=== PATIENT | male | born 1960 | race Caucasian/White ===

== ENCOUNTER 2017-02-20 07:03 | Inpatient (IN) | payer MEDICARE, BC ==
[~2017-02-20] VITALS: Ht 175.3 cm; Wt 113.9 kg
[~2017-02-20 07:03] MED LIST: GLIP5TAB10 PO; HYDR-2165 PO; METF-620 PO; PRED20TA PO
[2017-02-20 07:40] LABS: BASO % 0 % (0-3); EOS % 1 % (0-3); HEMATOCRIT 38.3 % (39.0-53.0); HEMOGLOBIN 12.6 g/dL (13.0-17.5); LYMPH # 2.2 x10^3/uL (1.0-4.8); LYMPH % 18 % (24-48); MEAN CORPUSCULAR HEMOGLOBIN 29 pg (25-35); MEAN CORPUSCULAR HGB CONC 33 g/dL (31-37); MEAN CORPUSCULAR VOLUME 88 fL (79-100); MONO % 7 % (0-9); NEUT % 74 % (31-73); PLATELET COUNT 287 x10^3/uL (140-400); RED BLOOD COUNT 4.33 x10^6/uL (4.30-5.70); RED CELL DISTRIBUTION WIDTH 16.9 % (11.5-14.5); WHITE BLOOD COUNT 12.1 x10^3/uL (4.0-11.0)
[2017-02-20] MEDS ORDERED: ONDANSETRON PF 4 MG/2 ML VIAL. IV ONE (07:45)
[2017-02-20] MEDS ORDERED: NITROGLYCERIN SUBLINGUAL 0.4 MG BOTTLE OF 25. SL PRN (07:45)
[2017-02-20] MEDS ORDERED: ASPIRIN CHEWABLE 81 MG TABLET. PO ONE (07:45)
[2017-02-20 07:49] LABS: INR 1.2 (0.8-1.1); PROTHROMBIN TIME PATIENT 14.3 SEC (11.7-14.0)
[2017-02-20] MEDS: MORPHINE SULFATE 4 MG/ML DISP.SYRIN. IV/SQ PRN ×3 (07:50→17:56)
[2017-02-20 08:01] LABS: ALBUMIN 2.7 g/dL (3.4-5.0); DIRECT BILIRUBIN 0.2 mg/dL (0.0-0.2); MAGNESIUM 1.9 mg/dL (1.8-2.4); TOTAL BILIRUBIN 0.7 mg/dL (0.2-1.0); TOTAL PROTEIN 7.4 g/dL (6.4-8.2)
--- NOTE | 2017-02-20 08:09 | RAD ---
Chest, 2 views, 02/20/2017: History: Chest pain Comparison is made to a study from 02/20/2013. The heart is mildly enlarged. Coronary artery calcifications are noted. There is mild to moderate right parahilar infiltrate. The left chest is clear. No pleural fluid is seen. There are mild scattered degenerative changes in the spine. IMPRESSION: 1. Mild cardiomegaly with coronary calcifications. 2. Right parahilar infiltrates suggesting pneumonia. Radiographic follow-up is suggested to exclude underlying neoplasm.
[2017-02-20 08:12] LABS: CKMB MASS < 0.5 ng/mL (0.0-3.6); CREATINE KINASE 21 U/L (39-308)
[2017-02-20] MEDS ORDERED: levOFLOXacin PER PHARMACY. MC PRN (08:15)
--- NOTE | 2017-02-20 08:21 | RAD ---
Right lower extremity venous ultrasound, 02/20/2017 : History: Right seen injury, contusion, chest pain Duplex evaluation including grayscale, color flow and spectral Doppler analysis was performed. The femoral and popliteal veins show no filling defects to suggest DVT. The visualized deep veins in the right calf are unremarkable. IMPRESSION: There is no sonographic evidence of deep vein thrombosis in the right lower extremity
--- NOTE | 2017-02-20 08:23 | PHYS DOC ---
Past Medical History Past Medical History: Arthritis, Constipation, Diabetes-Type II, Hypertension Additional Past Medical Histor: Psoriatic arthritis,legionaries disease,high cholesterol Past Surgical History: No Surgical History Alcohol Use: None Drug Use: None Adult General Chief Complaint Chief Complaint: chest pain HPI HPI Patient is a 56 year old male who presents with right-sided chest pain that awoke him at 3 AM. States it hurts when he takes a deep breath, does not radiate. Associated diaphoresis and SOB. States he hasn't been feeling well for the last couple of days, reports subjective fevers. Denies previous similar symptoms, denies known h/o CAD. Had Legionnaire's several years ago, no similar sputum with this cough. Review of Systems Review of Systems Constitutional: Denies chills [] Eyes: Denies change in visual acuity, redness, or eye pain [] HENT: Denies nasal congestion or sore throat [] Respiratory: per hpi Cardiovascular: No additional information not addressed in HPI [] GI: Denies abdominal pain, nausea, vomiting, bloody stools or diarrhea [] : Denies dysuria or hematuria [] Musculoskeletal: Denies back pain or joint pain [] Integument: Denies rash or skin lesions [] Neurologic: Denies headache, focal weakness or sensory changes [] Current Medications Current Medications Current Medications Medications (Trade) Dose Ordered Sig/Vanessa Start Time Stop Time Status Last Admin Dose Admin Acetaminophen (Tylenol) 650 mg PRN Q4HRS PRN 02/20/17 08:30 02/21/17 08:29 Aspirin (Children'S Aspirin) 324 mg 1X ONCE 02/20/17 07:45 02/20/17 07:46 DC 02/20/17 07:50 324 MG Iohexol (Omnipaque 300 Mg/ml) 75 ml 1X ONCE 02/20/17 08:30 02/20/17 08:31 DC 02/20/17 08:46 75 ML Levofloxacin/ Dextrose 150 ml @ 100 mls/hr 1X ONCE 02/20/17 08:15 02/20/17 09:44 DC 02/20/17 09:09 100 MLS/HR Levofloxacin/ Dextrose (Levaquin Per Pharmacy) 1 each PRN DAILY PRN 02/20/17 08:15 Morphine Sulfate 2 mg PRN Q2HR PRN 02/20/17 08:30 02/21/17 08:29 Nitroglycerin (Nitrostat) 0.4 mg PRN Q5MIN PRN 02/20/17 07:45 02/20/17 08:24 DC Ondansetron HCl (Zofran) 4 mg PRN Q8HRS PRN 02/20/17 08:30 02/21/17 08:29 Sodium Chloride 1,000 ml @ 1,000 mls/hr 1X ONCE 02/20/17 08:30 02/20/17 09:29 DC 02/20/17 09:09 1,000 MLS/HR Allergies Allergies Allergies Coded Allergies Type Severity Reaction Last Updated Verified Penicillins Allergy Severe anaphalaxis 07/02/16 Yes neomycin Allergy Intermediate rash/hives 07/02/16 Yes Physical Exam Physical Exam Constitutional: Well developed, well nourished, no acute distress, non-toxic appearance. [] HENT: Normocephalic, atraumatic, bilateral external ears normal, oropharynx moist, no oral exudates, nose normal. [] Eyes: PERRLA, EOMI, conjunctiva normal, no discharge. [] Neck: Normal range of motion, no tenderness trace systolic murmur [] Lungs & Thorax: Bilateral breath sounds, anterior R crackles, diffuse rhonchi, no wheezing Abdomen: Bowel sounds normal, soft, no tenderness, no masses, no pulsatile masses. [] Skin: Warm, dry, no erythema, no rash. [] Back: No tenderness, no CVA tenderness. [] Extremities: No tenderness, no cyanosis, no clubbing, ROM intact, no edema. [] Neurologic: Alert and oriented X 3, normal motor function, normal sensory function, no focal deficits noted. [] Psychologic: Affect normal, judgement normal, mood normal. [] Current Patient Data Vital Signs Vital Signs Date Time Temp Pulse Resp B/P (MAP) Pulse Ox O2 Delivery O2 Flow Rate FiO2 02/20/17 08:32 56 20 100/57 (71) 96 Nasal Cannula 2.0 02/20/17 07:14 98.8 98.8 Lab Values Laboratory Tests Test 02/20/17 07:20 White Blood Count 12.1 x10^3/uL (4.0-11.0) H Red Blood Count 4.33 x10^6/uL (4.30-5.70) Hemoglobin 12.6 g/dL (13.0-17.5) L Hematocrit 38.3 % (39.0-53.0) L Mean Corpuscular Volume 88 fL (79-100) Mean Corpuscular Hemoglobin 29 pg (25-35) Mean Corpuscular Hemoglobin Concent 33 g/dL (31-37) Red Cell Distribution Width 16.9 % (11.5-14.5) H Platelet Count 287 x10^3/uL (140-400) Neutrophils (%) (Auto) 74 % (31-73) H Lymphocytes (%) (Auto) 18 % (24-48) L Monocytes (%) (Auto) 7 % (0-9) Eosinophils (%) (Auto) 1 % (0-3) Basophils (%) (Auto) 0 % (0-3) Neutrophils # (Auto) 8.9 x10^3uL (1.8-7.7) H Lymphocytes # (Auto) 2.2 x10^3/uL (1.0-4.8) Monocytes # (Auto) 0.8 x10^3/uL (0.0-1.1) Eosinophils # (Auto) 0.2 x10^3/uL (0.0-0.7) Basophils # (Auto) 0.0 x10^3/uL (0.0-0.2) Prothrombin Time 14.3 SEC (11.7-14.0) H Prothrombin Time INR 1.2 (0.8-1.1) H Sodium Level 138 mmol/L (136-145) Potassium Level 3.9 mmol/L (3.5-5.1) Chloride Level 100 mmol/L (98-107) Carbon Dioxide Level 26 mmol/L (21-32) Anion Gap 12 (6-14) Blood Urea Nitrogen 12 mg/dL (8-26) Creatinine 0.9 mg/dL (0.7-1.3) Estimated GFR (Cockcroft-Gault) 87.0 Glucose Level 87 mg/dL (70-99) Calcium Level 9.0 mg/dL (8.5-10.1) Magnesium Level 1.9 mg/dL (1.8-2.4) Total Bilirubin 0.7 mg/dL (0.2-1.0) Direct Bilirubin 0.2 mg/dL (0.0-0.2) Aspartate Amino Transferase (AST) 27 U/L (15-37) Alanine Aminotransferase (ALT) 26 U/L (16-63) Alkaline Phosphatase 59 U/L (46-116) Creatine Kinase 21 U/L (39-308) L Creatine Kinase MB (Mass) < 0.5 ng/mL (0.0-3.6) Creatine Kinase MB Relative Index % (0-4) Troponin I Quantitative < 0.017 ng/mL (0.000-0.055) Total Protein 7.4 g/dL (6.4-8.2) Albumin 2.7 g/dL (3.4-5.0) L Laboratory Tests 02/20/17 07:20 Laboratory Tests 02/20/17 07:20 EKG EKG 57 bpm, sinus, normal axis, normal intervals, no ST elevation or depression, biphasic T-wave in V2 and V3, otherwise nonischemic T waves, interpreted by or Radiology/Procedures Radiology/Procedures Two-view chest x-ray shows right lower lobe pneumonia per my evaluation, mild cardiomegaly, no foreign bodies, per radiology they state patient has right perihilar infiltrates suggesting pneumonia, radiographic follow-up recommended as underlying neoplasm not excluded [] Course & Med Decision Making Course & Med Decision Making Pertinent Labs and Imaging studies reviewed. (See chart for details) Patient was given aspirin, morphine. X-ray shows pneumonia. DVT of the right lower leg ordered. IV Levaquin ordered along with lactate and blood cultures as patient is now Sirs positive with white count greater than 12 and respiratory rate greater than 22. I spoke with , she accepted pt and pt admitted to [facility]. CTA ordered and pending. 1 L NS bolus ordered. Pt's bp maintained. CTA shows no PE, does show pneumonia. Dragon Disclaimer Dragon Disclaimer This electronic medical record was generated, in whole or in part, using a voice recognition dictation system. Departure Departure Impression: Primary Impression: Community acquired bacterial pneumonia Additional Impression: Chest pain Disposition: ADMITTED INPATIENT Admitting Physician: Other Condition: STABLE Referrals: GARY EDWARD (PCP) Problem Qualifiers EDISON DERAS MD Feb 20, 2017 08:23
[2017-02-20] MEDS ORDERED: ONDANSETRON PF 4 MG/2 ML VIAL. IV PRN (08:30)
[2017-02-20] MEDS ORDERED: ACETAMINOPHEN 325 MG TABLET. PO PRN (08:30)
[2017-02-20] MEDS ORDERED: IV NORMAL SALINE 1000ML BAG 1,000 ML IV ONE (08:30)
[2017-02-20] MEDS ORDERED: IOHEXOL 300 MG/ML 75 ML VIAL IV ONE (08:30)
--- NOTE | 2017-02-20 08:43 | EKG ---
[facility] [address] [place] [address] Test Date: 2017-02-20 Test Time: 07:17:10 Pat Name: SAMI FERRER Department: Room: Gender: M [facility] Visitor: : 1960 Requested By: EDISON DERAS Order Number: [id number] Reading MD: Teena Carpenter Measurements Intervals [place] Rate: 57 P: -28 AL: 164 QRS: 57 QRSD: 106 T: 13 QT: 446 QTc: 437 Interpretive Statements SINUS RHYTHM INCOMPLETE RIGHT BUNDLE BRANCH BLOCK POSSIBLY ABNORMAL ECG Electronically Signed On 02-20-2017 14:36:48 CDT by Teena Carpenter
[2017-02-20] MEDS ORDERED: CONTRAST GIVEN MC PRN (08:45)
--- NOTE | 2017-02-20 09:43 | RAD ---
CTA of the chest with contrast, 02/20/2017: History: Shortness of breath, chest pain, infiltrate Multidetector CT imaging was performed following an IV bolus injection of iodinated contrast material. Multiplanar reconstructions were produced including coronal MIP images. The central pulmonary arteries are well opacified. No definite filling defects are seen to suggest pulmonary emboli. There is mild calcific plaquing of the thoracic aorta and its branches without evidence of aneurysm. Moderate scattered coronary artery calcifications are present. There are calcified lymph nodes at the left hilum. There are several scattered mediastinal lymph nodes of normal size. No mediastinal adenopathy is detected. There are calcified granulomata in the left lower lobe. The lungs demonstrate mosaic attenuation, particularly in the upper chest bilaterally. The pattern suggests that this is due to groundglass opacities. A lesser degree of groundglass infiltrate was present in a different distribution on the 02/20/2013 study. There are more dense streaky opacities in the right lower lobe compatible with infiltrate or scarring. Dense infiltrates seen in the left lung on the previous study have resolved. No significant pleural fluid is present. There are moderate scattered hypertrophic degenerative changes in the spine. IMPRESSION: 1. No CT evidence of central pulmonary emboli. 2. Moderate bilateral patchy groundglass pulmonary opacities which can be due to a variety of causes including pulmonary edema, atypical pneumonia or bronchiolitis. 3. Moderate streaky right lower lobe opacities compatible with atelectasis/pneumonitis or scarring. 4. Moderate coronary artery disease. PQRS Compliance Statement: One or more of the following individualized dose reduction techniques were utilized for this examination: 1. Automated exposure control 2. Adjustment of the mA and/or kV according to patient size 3. Use of iterative reconstruction technique
--- NOTE | 2017-02-20 10:01 | ACF ---
Admission Forms Criteria PNEUMONIA, COMMUNITY ACQUIRED Clinical Indications for Admission to Inpatient Care (Place 'X' for any and all applicable criteria): Admission to inpatient status for two midnights or more is indicated for ANY ONE of the following (1)(2)(3): [ ]I. Hypoxia [ ]II. Hemodynamic instability [ ]III. Altered mental status that is severe or persistent [ ]IV. Dehydration that is severe or persistent. [ ]V. Bacteremia [ ]. Moderate-risk or high-risk category patients (Pneumonia Severity Index ( PSI) class IV or V, or CURB-65 score of 3 or greater). [X]VII. Intermediate-risk category patients (e.g., PSI class III or CURB-65 score 2) who do not improve with outpatient and observation care treatment [ ]VIII. Outpatient treatment failure as indicated by 1 or more of the following(9): [ ]a) Failure to respond to antibiotic (eg, resistant organism) [ ]b) Clinically significant adverse effects from medication (eg, vomiting) [ ]c) Complications of pneumonia (eg, empyema, bacteremia) [ ]d) Significant worsening of comorbid cond necessitating inpatient care (eg, chronic heart failure) [ ]IX. Appropriate diagnostic testing and treatment unavailable in outpatient or recovery facility (eg, testing or infection control measures unavailable) [ ]X. Respiratory finding (eg. tachypnea) that do not respond to outpatient observation care treatment [ ]XI. Complicated pleural effusions (eg, emphysema, exudative, loculated) [ ]XII. Immunocompromised patients (e.g., AIDS, chronic steroid use) at moderate or high risk based on clinical evaluation. Extended stay beyond goal length of stay may be needed for (20) [ ]a) Unclear diagnosis [ ]b) Pleural disease [ ]c) Severe pneumonia or treatment failure [ ]d) Respiratory failure [ ]e) New onset hyponatremia (serum Na concentration less than 135 mEq/L(mmol/ L) [ ]f) Clinically significant comorbid illness (eg, heart failure, atrial fibrillation with rapid heart rate, alcohol withdrawal, renal insufficiency)(34)(35) [ ]g) Comorbid acute exacerbation of COPD(36) [ ]h) Concomitant diagnosis of malignancy [ ]i) Concomitant altered mental status [ ]j) Culture-identified Gram-negative or antibiotic-resistant organism (eg, Pseudomonas, methicillin-resistant Staphylococcus aureus MRSA)(30) [ ]k) Healthcare-associated pneumonia (36) The original [facility] [employer] content created by [facility] has been revised. The portions of the content which have been revised are identified through the use of italic text, and [facility] has neither reviewed nor approved the modified material. All other unmodified content is copyright [facility]. Please see references footnoted in the original [facility] edition 2015 Admission Criteria Met?: Yes ZAHRA ZAMORA Feb 20, 2017 10:01
[2017-02-20 10:09] LABS: CREATININE 0.9 mg/dL (0.7-1.3); POTASSIUM 3.9 mmol/L (3.5-5.1)
[2017-02-20] MEDS ORDERED: METH2.5T PO (10:19)
[2017-02-20] MEDS ORDERED: PRAV40TA2 PO (10:19)
[2017-02-20] MEDS ORDERED: LISI10TA2 PO (10:19)
[2017-02-20] MEDS ORDERED: AMIO200T2 PO (10:19)
[2017-02-20] MEDS ORDERED: OMEP40CA5 PO (10:19)
[2017-02-20] MEDS ORDERED: GLIM4TAB2 PO (10:19)
[2017-02-20] MEDS ORDERED: PRED-220 PO (10:19)
[2017-02-20] MEDS ORDERED: DUTA0.5C PO (10:19)
[2017-02-20 11:00] VITALS: BP 117/60
[2017-02-20] MEDS: MORPHINE SULFATE 2 MG/ML DISP.SYRIN. IV PRN ×2 (13:10→23:20)
[2017-02-20] MEDS ORDERED: ALBUTEROL SULFATE 2.5 MG/3 ML NEBU. NEB PRN (14:45)
[2017-02-20 15:00] VITALS: BP 132/72
[2017-02-20] MEDS: IPRATRPIUM/ALBUTEROL 0.5/2.5MG 3 ML NEBU. NEB SCH ×2 (15:03→19:18)
[2017-02-20 15:06] LABS: BILIRUBIN,URINE SMALL (NEG); GLUCOSE,URINE NEGATIVE (NEG); NITRITE,URINE NEGATIVE (NEG); PROTEIN,URINE 30 mg/dL (NEG-TRACE)
[2017-02-20 15:16] LABS: BACTERIA,URINE 0 /HPF (0-FEW); RBC,URINE OCC /HPF (0-2); SQUAMOUS EPITHELIAL CELL,UR FEW /LPF; WBC,URINE 0 /HPF (0-4)
[2017-02-20 17:06] VITALS: BP 132/72
[2017-02-20] MEDS ORDERED: OXYC30TA64 PO (18:06)
[2017-02-20 19:59] VITALS: BP 108/52
--- NOTE | 2017-02-20 21:10 | PDOC1 ---
History and Physical Date of Admission Date of Admission DATE: 02/20/17 TIME: 21:10 Identification/Chief Complaint Chief Complaint R sided chest pain Problems: Source Source: Patient History of Present Illness History of Present Illness Mr Townsend is a 56 y/o smoker with history of Legionnaire's pneumonia, who presented to the ER with severe, 10/10 sharp pain in the middle of his right chest, shooting through to his back, worse with deep breathing. This awoke him at 3AM this morning, and without relenting, he decided to come in. He admits to some diaphoresis, but no fever, no cough or sputum production. He denies any heart disease. In the ER, a CXR showed right perihilar infiltrate consistent with pneumonia. A CTA did not reveal a PE, but bilat patchy groundglass pulmonary opacities, possibly due to atypical pneumonia or bronchiolitis. right lower lobe opacities compatible with atelectasis/pneumonitis or scarring. He is now admitted for pain control as well as atypical pneumonia Current Problem List Problem List Problems Medical Problems: (1) Chest pain Status: Acute (2) Community acquired bacterial pneumonia Status: Acute Problems: Current Medications Current Medications Current Medications Aspirin (Children'S Aspirin) 324 mg 1X ONCE PO Last administered on 02/20/17 07:50; Start 02/20/17 at 07:45; Stop 02/20/17 at 07:46; Status DC Nitroglycerin (Nitrostat) 0.4 mg PRN Q5MIN PRN SL CP RATING > 1/10; Start at 07:45; Stop 02/20/17 at 08:24; Status DC Morphine Sulfate 4 mg PRN Q15MIN PRN IV/SQ PAIN GREATER THAN 3/10 Last administered on 02/20/17 17:56; Start 02/20/17 at 07:45; Stop 02/21/17 at 07:44 Ondansetron HCl (Zofran) 4 mg 1X ONCE IV Last administered on 02/20/17 07:49; Start 02/20/17 at 07:45; Stop 02/20/17 at 07:46; Status DC Levofloxacin/ Dextrose (Levaquin Per Pharmacy) 1 each PRN DAILY PRN MC SEE COMMENTS; Start 02/20/17 at 08:15 Levofloxacin/ Dextrose 150 ml @ 100 mls/hr 1X ONCE IV Last administered on 09:09; Start 02/20/17 at 08:15; Stop 02/20/17 at 09:44; Status DC Ondansetron HCl (Zofran) 4 mg PRN Q8HRS PRN IV NAUSEA/VOMITING; Start 02/20/17 at 08:30; Stop 02/21/17 at 08:29 Morphine Sulfate 2 mg PRN Q2HR PRN IV PAIN Last administered on 02/20/17 13:10 ; Start 02/20/17 at 08:30; Stop 02/21/17 at 08:29 Acetaminophen (Tylenol) 650 mg PRN Q4HRS PRN PO FEVER; Start 02/20/17 at 08:30; Stop 02/21/17 at 08:29 Sodium Chloride 1,000 ml @ 1,000 mls/hr 1X ONCE IV Last administered on 09:09; Start 02/20/17 at 08:30; Stop 02/20/17 at 09:29; Status DC Iohexol (Omnipaque 300 Mg/ml) 75 ml 1X ONCE IV Last administered on 02/20/17 08:46; Start 02/20/17 at 08:30; Stop 02/20/17 at 08:31; Status DC Info (Do NOT chart on this entry -- for MONITORING) 1 each PRN DAILY PRN MC SEE COMMENTS; Start 02/20/17 at 08:45; Stop 02/22/17 at 08:44 Levofloxacin/ Dextrose 100 ml @ 100 mls/hr Q24H IV ; Start 02/21/17 at 09:00 Albuterol/ Ipratropium (Duoneb) 3 ml RTQID NEB Last administered on 02/20/17 19 :18; Start 02/20/17 at 16:00 Albuterol Sulfate (Ventolin Neb Soln) 2.5 mg PRN Q4HRS PRN NEB SHORTNESS OF BREATH; Start 02/20/17 at 14:45 Active Scripts Active Reported Oxycontin (Oxycodone HCl) 30 Mg Tab.er.12h 90 Mg PO PRN Q4-6HRS PRN Glimepiride 4 Mg Tablet 4 Mg PO BID Prednisone 10 Mg Tablet 10 Mg PO BID Avodart (Dutasteride) 0.5 Mg Capsule 0.5 Mg PO DAILY Methotrexate (Methotrexate Sodium) 2.5 Mg Tablet 4 Tab PO WEEKLY Lisinopril 10 Mg Tablet 10 Mg PO DAILY Amiodarone Hcl 200 Mg Tablet 400 Mg PO BID Pravastatin Sodium 40 Mg Tablet 40 Mg PO DAILY Omeprazole 40 Mg Capsule.dr 40 Mg PO DAILY Metformin Hcl 1,000 Mg Tablet 1 Tab PO BID Allergies Allergies: Coded Allergies: Penicillins (Verified Allergy, Severe, anaphalaxis, 07/02/16) neomycin (Verified Allergy, Intermediate, rash/hives, 07/02/16) ROS Review of System positive as per HPI. no complaints in rest of organ system review Physical Exam General: Alert, Oriented X3, Cooperative, No acute distress HEENT: Atraumatic, EOMI Lungs: Other (decreased BS R midfield) Heart: RRR Abdomen: Normal bowel sounds, Soft Extremities: No clubbing, No cyanosis, No edema Skin: No rashes Neuro: Normal speech, Strength at 5/5 X4 ext Psych/Mental Status: Mental status NL Vitals Vitals Vital Signs Date Time Temp Pulse Resp B/P (MAP) Pulse Ox O2 Delivery O2 Flow Rate FiO2 02/20/17 19:59 97.5 48 20 108/52 (70) 91 Room Air 97.5 02/20/17 18:26 2.0 Labs Labs Laboratory Tests Test 02/20/17 07:20 02/20/17 08:40 02/20/17 11:15 02/20/17 14:15 White Blood Count 12.1 x10^3/uL (4.0-11.0) Red Blood Count 4.33 x10^6/uL (4.30-5.70) Hemoglobin 12.6 g/dL (13.0-17.5) Hematocrit 38.3 % (39.0-53.0) Mean Corpuscular Volume 88 fL (79-100) Mean Corpuscular Hemoglobin 29 pg (25-35) Mean Corpuscular Hemoglobin Concent 33 g/dL (31-37) Red Cell Distribution Width 16.9 % (11.5-14.5) Platelet Count 287 x10^3/uL (140-400) Neutrophils (%) (Auto) 74 % (31-73) Lymphocytes (%) (Auto) 18 % (24-48) Monocytes (%) (Auto) 7 % (0-9) Eosinophils (%) (Auto) 1 % (0-3) Basophils (%) (Auto) 0 % (0-3) Neutrophils # (Auto) 8.9 x10^3uL (1.8-7.7) Lymphocytes # (Auto) 2.2 x10^3/uL (1.0-4.8) Monocytes # (Auto) 0.8 x10^3/uL (0.0-1.1) Eosinophils # (Auto) 0.2 x10^3/uL (0.0-0.7) Basophils # (Auto) 0.0 x10^3/uL (0.0-0.2) Prothrombin Time 14.3 SEC (11.7-14.0) Prothromb Time International Ratio 1.2 (0.8-1.1) Sodium Level 138 mmol/L (136-145) Potassium Level 3.9 mmol/L (3.5-5.1) Chloride Level 100 mmol/L (98-107) Carbon Dioxide Level 26 mmol/L (21-32) Anion Gap 12 (6-14) Blood Urea Nitrogen 12 mg/dL (8-26) Creatinine 0.9 mg/dL (0.7-1.3) Estimated GFR (Cockcroft-Gault) 87.0 Glucose Level 87 mg/dL (70-99) Calcium Level 9.0 mg/dL (8.5-10.1) Magnesium Level 1.9 mg/dL (1.8-2.4) Total Bilirubin 0.7 mg/dL (0.2-1.0) Direct Bilirubin 0.2 mg/dL (0.0-0.2) Aspartate Amino Transf (AST/SGOT) 27 U/L (15-37) Alanine Aminotransferase (ALT/SGPT) 26 U/L (16-63) Alkaline Phosphatase 59 U/L (46-116) Creatine Kinase 21 U/L (39-308) Creatine Kinase MB (Mass) < 0.5 ng/mL (0.0-3.6) Creatine Kinase MB Relative Index % (0-4) Troponin I Quantitative < 0.017 ng/mL (0.000-0.055) < 0.017 ng/mL (0.000-0.055) Total Protein 7.4 g/dL (6.4-8.2) Albumin 2.7 g/dL (3.4-5.0) Lactic Acid Level 0.7 mmol/L (0.4-2.0) 0.8 mmol/L (0.4-2.0) Test 02/20/17 15:00 Urine Collection Type Unknown Urine Color Dk yellow Urine Clarity Clear Urine pH 6.0 Urine Specific [place] >=1.030 Urine Protein 30 mg/dL (NEG-TRACE) Urine Glucose (UA) Negative mg/dL (NEG) Urine Ketones (Stick) 15 mg/dL (NEG) Urine Blood Negative (NEG) Urine Nitrite Negative (NEG) Urine Bilirubin Small (NEG) Urine Urobilinogen Dipstick 1.0 mg/dL (0.2 mg/dL) Urine Leukocyte Esterase Negative (NEG) Urine RBC Occ /HPF (0-2) Urine WBC 0 /HPF (0-4) Urine Squamous Epithelial Cells Few /LPF Urine Bacteria 0 /HPF (0-FEW) Laboratory Tests Test 02/20/17 07:20 02/20/17 08:40 02/20/17 11:15 02/20/17 14:15 White Blood Count 12.1 x10^3/uL (4.0-11.0) Red Blood Count 4.33 x10^6/uL (4.30-5.70) Hemoglobin 12.6 g/dL (13.0-17.5) Hematocrit 38.3 % (39.0-53.0) Mean Corpuscular Volume 88 fL (79-100) Mean Corpuscular Hemoglobin 29 pg (25-35) Mean Corpuscular Hemoglobin Concent 33 g/dL (31-37) Red Cell Distribution Width 16.9 % (11.5-14.5) Platelet Count 287 x10^3/uL (140-400) Neutrophils (%) (Auto) 74 % (31-73) Lymphocytes (%) (Auto) 18 % (24-48) Monocytes (%) (Auto) 7 % (0-9) Eosinophils (%) (Auto) 1 % (0-3) Basophils (%) (Auto) 0 % (0-3) Neutrophils # (Auto) 8.9 x10^3uL (1.8-7.7) Lymphocytes # (Auto) 2.2 x10^3/uL (1.0-4.8) Monocytes # (Auto) 0.8 x10^3/uL (0.0-1.1) Eosinophils # (Auto) 0.2 x10^3/uL (0.0-0.7) Basophils # (Auto) 0.0 x10^3/uL (0.0-0.2) Prothrombin Time 14.3 SEC (11.7-14.0) Prothromb Time International Ratio 1.2 (0.8-1.1) Sodium Level 138 mmol/L (136-145) Potassium Level 3.9 mmol/L (3.5-5.1) Chloride Level 100 mmol/L (98-107) Carbon Dioxide Level 26 mmol/L (21-32) Anion Gap 12 (6-14) Blood Urea Nitrogen 12 mg/dL (8-26) Creatinine 0.9 mg/dL (0.7-1.3) Estimated GFR (Cockcroft-Gault) 87.0 Glucose Level 87 mg/dL (70-99) Calcium Level 9.0 mg/dL (8.5-10.1) Magnesium Level 1.9 mg/dL (1.8-2.4) Total Bilirubin 0.7 mg/dL (0.2-1.0) Direct Bilirubin 0.2 mg/dL (0.0-0.2) Aspartate Amino Transf (AST/SGOT) 27 U/L (15-37) Alanine Aminotransferase (ALT/SGPT) 26 U/L (16-63) Alkaline Phosphatase 59 U/L (46-116) Creatine Kinase 21 U/L (39-308) Creatine Kinase MB (Mass) < 0.5 ng/mL (0.0-3.6) Creatine Kinase MB Relative Index % (0-4) Troponin I Quantitative < 0.017 ng/mL (0.000-0.055) < 0.017 ng/mL (0.000-0.055) Total Protein 7.4 g/dL (6.4-8.2) Albumin 2.7 g/dL (3.4-5.0) Lactic Acid Level 0.7 mmol/L (0.4-2.0) 0.8 mmol/L (0.4-2.0) Test 02/20/17 15:00 Urine Collection Type Unknown Urine Color Dk yellow Urine Clarity Clear Urine pH 6.0 Urine Specific [place] >=1.030 Urine Protein 30 mg/dL (NEG-TRACE) Urine Glucose (UA) Negative mg/dL (NEG) Urine Ketones (Stick) 15 mg/dL (NEG) Urine Blood Negative (NEG) Urine Nitrite Negative (NEG) Urine Bilirubin Small (NEG) Urine Urobilinogen Dipstick 1.0 mg/dL (0.2 mg/dL) Urine Leukocyte Esterase Negative (NEG) Urine RBC Occ /HPF (0-2) Urine WBC 0 /HPF (0-4) Urine Squamous Epithelial Cells Few /LPF Urine Bacteria 0 /HPF (0-FEW) VTE Prophylaxis Ordered VTE Prophylaxis Devices: No VTE Pharmacological Prophylaxi: Yes Assessment/Plan Assessment/Plan MR Townsend is a 56 y/o smoker who presented with right sided chest pain and findings of atypical pneumonia. will switch antibiotics to azithro 500 for 3 days. With hardly any respiratory symptoms, he may be able to complete the regimen on an outpatient basis. He does have severe respirophasic pain consistent with accompanying pneumonitis. Morphine IV works well for him. will try and switch to PO percocet to hopefully facilitate discharge. He is eager to leave early tomorrow, if at all suitable, has he would love to watch his 10y/o grandson play in the National playoffs going on tomorrow. Of note moderate coronary diseas was notesd on CTA as well. should have his PCP refer to Cardiology when current issues resolved MAIRA BONE MD Feb 20, 2017 21:10
[2017-02-20 23:59] VITALS: BP 124/75
[2017-02-21] MEDS ORDERED: oxyCODONE/APAP 5/325 1 TAB TABLET PO PRN (00:45)
[2017-02-21 07:00] VITALS: BP 135/70
[2017-02-21] MEDS: IPRATRPIUM/ALBUTEROL 0.5/2.5MG 3 ML NEBU. NEB SCH ×2 (07:23→11:47)
[2017-02-21] MEDS ORDERED: AZITHROMYCIN 250 MG TABLET. PO ONE (09:00)
[2017-02-21] MEDS ORDERED: GUAI100L12 PO (10:59)
[2017-02-21] MEDS ORDERED: LEVO750T31 PO (10:59)
[2017-02-21] MEDS ORDERED: OXYC30TA64 PO (10:59)
--- NOTE | 2017-02-21 13:25 | PDOC3 ---
Discharge Summary [facility] Date of Admission: Feb 20, 2017 Discharge Date: Feb 21, 2017 Admitting Diagnosis CAP. no bacteria can be determined chest pain, 2/2 CAP h/o Arthritis, Constipation, Diabetes-Type II, Hypertension Problems: Final Diagnosis Brief Hospital Course Mr. Garner is a 56 old M, comes for cough, right side chest pain, pleuritic, worse with deep breath, cough, non productive. He feels better today, requires to go home dc home with levaquin, cough meds, and oxycontin bid [id number]. dc time 35min General: Alert, Oriented X3, Cooperative, No acute distress HEENT: Atraumatic, EOMI Lungs: Other (decreased BS R midfield) Heart: RRR Abdomen: Normal bowel sounds, Soft Extremities: No clubbing, No cyanosis, No edema Skin: No rashes Neuro: Normal speech, Strength at 5/5 X4 ext Psych/Mental Status: Mental status NL Patient History: Problems: Disposition home CONDITION AT DISCHARGE: Improved Scheduled Amiodarone Hcl (Amiodarone Hcl), 400 MG PO BID, (Reported) Dutasteride (Avodart), 0.5 MG PO DAILY, (Reported) Glimepiride (Glimepiride), 4 MG PO BID, (Reported) Levofloxacin (Levaquin), 750 MG PO DAILY06 Lisinopril (Lisinopril), 10 MG PO DAILY, (Reported) Metformin Hcl (Metformin Hcl), 1 TAB PO BID, (Reported) Methotrexate Sodium (Methotrexate), 4 TAB PO WEEKLY, (Reported) Omeprazole (Omeprazole), 40 MG PO DAILY, (Reported) Pravastatin Sodium (Pravastatin Sodium), 40 MG PO DAILY, (Reported) Prednisone (Prednisone), 10 MG PO BID, (Reported) Scheduled PRN Guaifenesin (Guaifenesin), 200 MG PO PRN Q4HRS PRN for COUGH Oxycodone Hcl (Oxycontin), 90 MG PO PRN Q4-6HRS PRN for PAIN Follow Up pcp in 2 weeks ULISSES NINO MD Feb 21, 2017 13:25
[2017-02-24 08:03] LABS: POTASSIUM ISTAT 3.8 mmol/L (3.5-5.0)
== END 2017-02-21 13:09 | disposition home or self-care (01) | DRG 194 ==
LOC: ER 07:03 → 5 NORTH 08:34
PROVIDERS: ADMIT Internal Medicine Hematology & Oncology; ATTEND Internal Medicine Hematology & Oncology
DX: J18.9 Pneumonia, unspecified organism (principal); E44.0 Moderate protein-calorie malnutrition; F17.200 Nicotine dependence, unspecified, uncomplicated; E78.00 Pure hypercholesterolemia, unspecified; E11.9 Type 2 diabetes mellitus without complications; I10 Essential (primary) hypertension; K59.00 Constipation, unspecified; M19.90 Unspecified osteoarthritis, unspecified site; Z88.0 Allergy status to penicillin; Z88.1 Allergy status to other antibiotic agents
CPT/HCPCS: 36415; 71020; 71275; 80047; 80048; 80076; 81001; 82553; 82962; 83605; 83735; 84484; 85027; 85610; 87040; 93005; 93971; 94250; 94640; 94760; 96365; 96375; J1956; J2270; J2405; J7030; J7620; Q0144; Q9967; 99285-25

== ENCOUNTER → 2017-03-16 | Outpatient (CLI) | payer MEDICARE, BC ==
[2017-02-21 07:00] VITALS: BP 135/70
[~2017-03-16] MED LIST changes: +AMIO200T2 PO; +DUTA0.5C PO; +GLIM4TAB2 PO; +GUAI100L12 PO; +LEVO750T31 PO; +LISI10TA2 PO; +METH2.5T PO; +OMEP40CA5 PO; +OXYC30TA64 PO; +PRAV40TA2 PO; +PRED-220 PO
--- NOTE | 2017-03-16 15:45 | RAD ---
Chest, 2 views, 03/16/2017: History: Follow-up pneumonia Comparison is made to a study from 02/20/2017. The heart is at the upper limits of normal in size and unchanged. The pulmonary vascularity is normal. Right lung infiltrates have resolved. No significant pulmonary consolidation is currently seen. There is no evidence of pleural fluid. Mild scattered spurs are present in the spine. IMPRESSION: Interval resolution of the right pneumonitis.
== END | disposition home or self-care (01) ==
LOC: RAD 09:37
PROVIDERS: ATTEND Family Medicine
DX: J18.9 Pneumonia, unspecified organism (principal)
CPT/HCPCS: 71020

== ENCOUNTER → 2017-05-24 | Outpatient (CLI) | payer MEDICARE, BC ==
[2017-04-19 15:00] VITALS: BP 118/55
[~2017-05-24] MED LIST changes: +ASPI325T11 PO; +CEFP100T PO; +GLIM2TAB PO; +LISI-334 PO; +OXYC30TA PO; +TAMS0.4C97 PO
[2017-05-25] MEDS: REGADENOSON 0.4 MG/5 ML DISP.SYRIN. IV ONE (08:28)
--- NOTE | 2017-05-25 11:30 | RAD ---
APPROVED REPORT Test Type: Pharmacological Stress Nurse/Tech: ISAEL Marin Test Indications: NSTEMI Cardiac History: Afib,HTN Medications: See EMR Medical History: pneumonia, smoker, inhaler PRN, DM Resting ECG: SBw/BBB Resting Heart Rate: 47 bpm Resting Blood Pressure: 165/69mmHg Pretest Chest Pain: No chest pain Nurse/Tech Notes S1,S2, wheezes noted on left, cough productive with green sputum Consent: The procedure was explained to the patient in lay terms. Informed consent was witnessed. Burak eout was entered into [email or web address]. History and Stress Test performed by ISAEL Marin Pharm. Details Pharmacologic stress testing was performed using 0.4mg per 5ml of regadenoson given intravenously ove r 7-10 seconds. Stress Symptoms Tightness in chest, anxiety POST EXERCISE Reason for Termination: Infusion complete Max HR: 128 bpm Max Blood Pressure: 184/75mmHg Blood Pressure response to exercise: Normal blood pressure response during stress. Heart Rate response to exercise: Normal Chest Pain: No. Arrhythmia: No. ST Change: No. INTERPRETATION Stress EKG Conclusion: Baseline EKG showed sinus rhythm. No ischemic changes at peak stress. No arr hythmias. Imaging Protocol IMAGE PROTOCOL: Rest Tc-99m/stress Tc-99m 2 days Rest: Stress: Viability: Radiopharm.Tc99m [id number] Sestamibi Dose34.3mCi 33mCi Duration 12min. 12min. Img Date 05/24/2017 05/25/2017 Inj-Img [id number]. 75min. Rest Admin Site:IV - Left AntecubitalAdministrator:HIMANSHU Moreau Stress Admin Site: IV - Left AntecubitalAdministrator: Lurdes Medina, RT (R)(N) STRESS DATA End Diast. Vol.210.0mlAv. Heart Rate48.0bpm End Syst. Vol.81.0mlCO Index BSA6.2L/min Myocardial Pguv171.0gEject. Npdeuixy84.0% Stress Rates Pk. Fill Rate2.34EDV/secLVtime Pk. Fill 264.51msec Pk. Empty Rate2.56ESV/secLVtime Pk. Oegwz947.54msec 08/25 Pk. Fill0.92EDV/sec Stress Scores Regional WT0.00Summed WT6.00 Regional WM0.00Summed WM0.00 LV Perfusion Scintigraphic images showed small anteroapical wall reversible defect consistent with ischemia. There is borderline transient ischemic dilatation. Wall Motion Normal left ventricle systolic function with ejection fraction calculated at 61%. LV Perf. Quant 17 Seg. SSS4.00 17 Seg. SRS2.00 17 Seg. SDS3.00 Stress Defect Extent (% LAD)20.60Rest Defect Extent (% LAD)1.90Rev. Defect Extent (% LAD)13.10 Stress Defect Extent (% LCX) 0.00Rest Defect Extent (% LCX)11.30Rev. Defect Extent (% LCX)0.00 Stress Defect Extent (% RCA)0.00Rest Defect Extent (% RCA)0.00Rev. Defect Extent (% RCA)0.00 Stress Defect Extent (% ALLIE)7.80Rest Defect Extent (% ALLIE)5.40Rev. Defect Extent (% ALLIE)4.60 Conclusion 1. Regadenoson cardioisotope stress test showed small amount of anteroapical wall ischemia associated with borderline transient ischemic dilatation. 2. Normal left ventricular systolic function with ejection fraction calculated at 61%. 3. Consider cardiac catheterization.
== END | disposition home or self-care (01) ==
LOC: NM 08:33
PROVIDERS: ATTEND Internal Medicine Cardiovascular Disease
DX: I21.4 Non-ST elevation (NSTEMI) myocardial infarction (principal); I49.5 Sick sinus syndrome; I10 Essential (primary) hypertension; E11.9 Type 2 diabetes mellitus without complications; Z79.01 Long term (current) use of anticoagulants
CPT/HCPCS: 78452; 96374; 96375; A9500; 93017; 96376; J2785

== ENCOUNTER → 2017-06-03 | Outpatient (CLI) | payer MEDICARE, BC ==
[~2017-06-03] VITALS: Ht 172.7 cm; Wt 116.6 kg
[2017-06-03] VITALS (11 sets, daily range): BP systolic 98–147; BP diastolic 57–73
[~2017-06-03] MED LIST changes: +HEPARIN for ARTERIAL LINE 1,500 ML ONE; +HEPARIN for IV BOLUS 10,000 UNIT/10 ML VIAL. IART ONE; +HEPARIN for IV BOLUS 10,000 UNIT/10 ML VIAL. ONE; +IOHEXOL 300 MG/ML 100ML VIAL. IART ONE; +IOHEXOL 300 MG/ML 100ML VIAL. ONE; +IV 1/2 NORMAL SALINE 1,000 ML IV SCH; +IV DEXTROSE 5 %-0.45 % NACL 1,000 ML IV SCH; +LIDOCAINE 2% 20 ML VIAL. IJ ONE; +LIDOCAINE 2% 20 ML VIAL. ONE; +MIDAZOLAM HCL/PF 5 MG/5 ML VIAL. IV ONE; +MIDAZOLAM HCL/PF 5 MG/5 ML VIAL. ONE; +NITROGLYCERIN 200 MCG/2 ML SYRINGE FOR CATH/VASC LAB. IART ONE; +NITROGLYCERIN 200 MCG/2 ML SYRINGE FOR CATH/VASC LAB. ONE; +VERAPAMIL 5 MG/2 ML VIAL. IART ONE; +VERAPAMIL 5 MG/2 ML VIAL. ONE; +fentaNYL PF VIAL 100 MCG/2 ML VIAL IV ONE; +fentaNYL PF VIAL 100 MCG/2 ML VIAL ONE
[2017-06-03 07:50] LABS: HEMATOCRIT 38.4 % (39.0-53.0); HEMOGLOBIN 12.6 g/dL (13.0-17.5); RED BLOOD COUNT 4.51 x10^6/uL (4.30-5.70); RED CELL DISTRIBUTION WIDTH 19.8 % (11.5-14.5); WHITE BLOOD COUNT 10.6 x10^3/uL (4.0-11.0)
[2017-06-03 08:00] LABS: PROTHROMBIN TIME PATIENT 12.6 SEC (11.7-14.0)
[2017-06-03 08:02] LABS: CALCIUM 8.8 mg/dL (8.5-10.1); CREATININE 0.9 mg/dL (0.7-1.3)
--- NOTE | 2017-06-03 09:41 | PDOC ---
MODERATE SEDATION ASSESSMENT RISKS/ALTERNATIVES Risks/Alternatives Risks and alternatives of this type of sedation and procedure discussed with: RISK/ALTERNATIVES: Patient H & P ON CHART H & P H & P on chart and reviewed for co-morbid conditions and appropriate labs. H&P ON CHART: Yes STATUS PREG STATUS ASSESSED: N/A MEDS/ALLERGIES REVIEWED Meds/Allergies Reviewed Medications and Allergies including time and route of recently administered narcotics and sedatives. MEDS/ALLERGIES REVIEWED: Yes ASA RATING ASA RATING: II AIRWAY ASSESSMENT Airway Assessment Airway patency, oral function limitations, presence of caps, crowns, dentures, partials, and ability to extend neck assessed. AIRWAY ASSESSMENT: Yes MALLAMPATI SCORE MALLAMPATI SCORE: II PRE-SEDATION ASSESSMENT PRE-SEDATION ASSESSMENT: Yes (Late entry for 06/03/2017 at 9am ) ANTHONY SANDERS MD Jun 03, 2017 09:41
--- NOTE | 2017-06-03 10:22 | CARD ---
APPROVED REPORT Procedure(s) performed: Left heart catheterization, Coronary angiography, Left ventriculography MODERATE SEDATION: 43 MINUTES HISTORY The patient is a 56 year-old male with a history of : previous CHF, chronic lung disease. INDICATION The indication(s) include : positive stress test. PROCEDURE NARRATIVE The patient was brought electively to the cardiac catheterization lab. A timeout was performed confi rming the patient's name, date of , procedure, and site of procedure. All necessary personnel w ere wearing the appropriate protective equipment and radiation monitor devices. After explaining the risks and benefits of the procedure and alternatives, informed consent was obtained. (See nursing no shayna for medications administered). The right wrist was sterilely prepped and draped in the usual fas hion. The right wrist was infiltrated with 1 mL of 2% lidocaine for subcutaneous anesthesia. A 6 Fr ench Terumo glide sheath was inserted into the right radial artery without difficulty. The patient e xperienced significant pain while manipulating the wire and catheter near the forearm. Diagnostic ang iography revealed sheath placement in the right accessory radial artery. Therefore, this approach was abandoned due to pain and discomfort. Tthe right radial sheath was removed and a Terumo radial band was applied with 13 ml of air. Subsequently, the right groin site was infiltrated with 10 ml of Lid ocaine local anesthesia. Next, a 6Fr sheath was placed via the modified seldinger technique. Right an d left coronary angiography was performed using 6Fr JR4 and JL4 catheters. Left ventricular end johnson tolic pressure was obtained with a pigtail catheter and pullback was performed after left ventriculog essie. All catheter exchanges and advancements were performed over a guidewire. The patient tolera luis carlos the procedure well and there were no immediate complications. The femoral artery sheath was remov ed and hemostasis achieved with an Angioseal device. HEMODYNAMICS: LVEDP 18 mm Hg No gradient on LV to aortic pullback. LEFT VENTRICULOGRAM: EF 55% Anterobasal: Normal. Anterolateral: Normal Apical: Normal Diaphragmatic: Normal Posterobasal: Normal CORONARY ANGIOGRAPHY: LM is a large caliber vessel with normal angiographic appearance. LAD is a large caliber vessel with normal angiographic appearance. The apical LAD wraps around the ap ex serving the territory supplied by the PDA. D1 is a moderate to large caliber vessel with mild luminal irregularities. LCx is a moderate caliber dominant vessel with mild luminal irregularities. LP1, LP2 and LPDA are small to moderate caliber vessels with mild luminal irregularities. RCA is a small caliber non-dominant vessel with normal angiographic appearance. Conclusion 1. Normal LV function. EF 55% 2. Mildly elevated LVEDP at 18 mm Hg. 3. No significant coronary artery disease. Recommendations Aggressive Medical Therapy
== END | disposition home or self-care (01) ==
LOC: CCL 07:21
PROVIDERS: ATTEND Internal Medicine Cardiovascular Disease
DX: I50.9 Heart failure, unspecified (principal); I11.0 Hypertensive heart disease with heart failure; E78.00 Pure hypercholesterolemia, unspecified; I48.91 Unspecified atrial fibrillation; E11.9 Type 2 diabetes mellitus without complications; F17.200 Nicotine dependence, unspecified, uncomplicated; Z87.01 Personal history of pneumonia (recurrent); Z87.39 Personal history of other diseases of the musculoskeletal system and connective tissue; Z98.890 Other specified postprocedural states; Z86.39 Personal history of other endocrine, nutritional and metabolic disease; Z88.1 Allergy status to other antibiotic agents; Z88.0 Allergy status to penicillin
CPT/HCPCS: 36415; 80048; 82962; 85027; 85610; 93458; 99152; 99153; C1769; C1771; C1892; J1644; J2250; J3010; J3490; Q9967; G0269; J2001

== ENCOUNTER 2019-05-30 10:24 | Inpatient (IN) | payer MEDICARE, BC ==
[~2019-05-30] VITALS: Ht 177.8 cm; Wt 97.1 kg
[~2019-05-30 10:24] MED LIST changes: -AMIO200T2 PO; +AMIO200T4 PO; -GLIM4TAB2 PO; +GLIM4TAB4 PO; -HEPARIN for ARTERIAL LINE 1,500 ML ONE; -HEPARIN for IV BOLUS 10,000 UNIT/10 ML VIAL. IART ONE; -HEPARIN for IV BOLUS 10,000 UNIT/10 ML VIAL. ONE; -IOHEXOL 300 MG/ML 100ML VIAL. IART ONE; -IOHEXOL 300 MG/ML 100ML VIAL. ONE; -IV 1/2 NORMAL SALINE 1,000 ML IV SCH; -IV DEXTROSE 5 %-0.45 % NACL 1,000 ML IV SCH; -LIDOCAINE 2% 20 ML VIAL. IJ ONE; -LIDOCAINE 2% 20 ML VIAL. ONE; -METF-620 PO; +METF10007 PO; -MIDAZOLAM HCL/PF 5 MG/5 ML VIAL. IV ONE; -MIDAZOLAM HCL/PF 5 MG/5 ML VIAL. ONE; -NITROGLYCERIN 200 MCG/2 ML SYRINGE FOR CATH/VASC LAB. IART ONE; -NITROGLYCERIN 200 MCG/2 ML SYRINGE FOR CATH/VASC LAB. ONE; +OMEP40CA45 PO; -OMEP40CA5 PO; -OXYC30TA PO; +OXYC30TA3 PO; -VERAPAMIL 5 MG/2 ML VIAL. IART ONE; -VERAPAMIL 5 MG/2 ML VIAL. ONE; -fentaNYL PF VIAL 100 MCG/2 ML VIAL IV ONE; -fentaNYL PF VIAL 100 MCG/2 ML VIAL ONE
--- NOTE | 2019-05-30 10:40 | PHYS DOC ---
Past Medical History Past Medical History: A-Fib, Arthritis, Constipation, Diabetes-Type II, High Cholesterol, Hypertension, Pneumonia Additional Past Medical Histor: Psoriatic arthritis,legionaries disease,high cholesterol Past Surgical History: Other Additional Past Surgical Histo: BILAT KNEE Alcohol Use: None Drug Use: None Adult General Chief Complaint Chief Complaint: CHEST PAIN HPI HPI Patient is a 58 year old male that presents with palpitations that started yesterday. The patient denies any other acute complaints. The patient does rate his pain 6 out of 10 in severity and states he hurts all over however he says that is baseline due to his orthopedic chronic history. The patient smokes one pack per day and states he's trying to quit. Review of Systems Review of Systems Constitutional: Denies fever or chills [] Eyes: Denies change in visual acuity, redness, or eye pain [] HENT: Denies nasal congestion or sore throat [] Respiratory: Denies cough or shortness of breath [] Cardiovascular: No additional information not addressed in HPI [] GI: Denies abdominal pain, nausea, vomiting, bloody stools or diarrhea [] : Denies dysuria or hematuria [] Musculoskeletal: Reports chronic back pain Integument: Denies rash or skin lesions [] Neurologic: Denies headache, focal weakness or sensory changes [] Endocrine: Denies polyuria or polydipsia [] Complete systems were reviewed and found to be within normal limits, except as documented in this note. Current Medications Current Medications Current Medications Medications (Trade) Dose Ordered Sig/Vanessa Start Time Stop Time Status Last Admin Dose Admin Aspirin (Children'S Aspirin) 324 mg 1X ONCE 05/30/19 10:45 05/30/19 10:46 DC 05/30/19 10:48 324 MG Azithromycin 250 ml @ 250 mls/hr 1X ONCE 05/30/19 12:15 05/30/19 13:14 05/30/19 12:20 250 MLS/HR Ceftriaxone Sodium (Rocephin) 1 gm 1X ONCE 05/30/19 12:15 05/30/19 12:16 DC 05/30/19 12:20 1 GM Allergies Allergies Allergies Coded Allergies Type Severity Reaction Last Updated Verified Penicillins Allergy Severe anaphalaxis 05/30/19 Yes neomycin Allergy Intermediate rash/hives 07/02/16 Yes Physical Exam Physical Exam Constitutional: Well developed, well nourished, no acute distress, non-toxic appearance. [] HENT: Normocephalic, atraumatic, bilateral external ears normal, oropharynx moist, no oral exudates, nose normal. [] Eyes: PERRLA, EOMI, conjunctiva normal, no discharge. [] Neck: Normal range of motion, no tenderness, supple, no stridor. [] Cardiovascular:Heart rate regular rhythm, no murmur [] Lungs & Thorax: Bilateral breath sounds clear to auscultation [] Abdomen: Bowel sounds normal, soft, no tenderness, no masses, no pulsatile m asses. [] Skin: slightly pale, Warm, dry, no erythema, no rash. [] Back: No tenderness, no CVA tenderness. [] Extremities: No tenderness, no cyanosis, no clubbing, ROM intact, no edema. [] Neurologic: Alert and oriented X 3, normal motor function, normal sensory function, no focal deficits noted. [] Psychologic: Affect normal, judgement normal, mood normal. [] Current Patient Data Vital Signs Vital Signs Date Time Temp Pulse Resp B/P (MAP) Pulse Ox O2 Delivery O2 Flow Rate FiO2 05/30/19 10:32 98.9 61 20 194/108 (136) 98 Room Air 98.9 Lab Values Laboratory Tests Test 05/30/19 10:50 White Blood Count 11.8 x10^3/uL (4.0-11.0) H Red Blood Count 5.53 x10^6/uL (4.30-5.70) Hemoglobin 16.3 g/dL (13.0-17.5) Hematocrit 48.5 % (39.0-53.0) Mean Corpuscular Volume 88 fL (79-100) Mean Corpuscular Hemoglobin 29 pg (25-35) Mean Corpuscular Hemoglobin Concent 34 g/dL (31-37) Red Cell Distribution Width 17.0 % (11.5-14.5) H Platelet Count 305 x10^3/uL (140-400) Neutrophils (%) (Auto) 66 % (31-73) Lymphocytes (%) (Auto) 25 % (24-48) Monocytes (%) (Auto) 6 % (0-9) Eosinophils (%) (Auto) 2 % (0-3) Basophils (%) (Auto) 1 % (0-3) Neutrophils # (Auto) 7.7 x10^3/uL (1.8-7.7) Lymphocytes # (Auto) 2.9 x10^3/uL (1.0-4.8) Monocytes # (Auto) 0.7 x10^3/uL (0.0-1.1) Eosinophils # (Auto) 0.2 x10^3/uL (0.0-0.7) Basophils # (Auto) 0.2 x10^3/uL (0.0-0.2) Sodium Level 137 mmol/L (136-145) Potassium Level 3.7 mmol/L (3.5-5.1) Chloride Level 98 mmol/L (98-107) Carbon Dioxide Level 28 mmol/L (21-32) Anion Gap 11 (6-14) Blood Urea Nitrogen 11 mg/dL (8-26) Creatinine 0.9 mg/dL (0.7-1.3) Estimated GFR (Cockcroft-Gault) 86.4 BUN/Creatinine Ratio 12 (6-20) Glucose Level 198 mg/dL (70-99) H Calcium Level 9.6 mg/dL (8.5-10.1) Total Bilirubin 0.5 mg/dL (0.2-1.0) Aspartate Amino Transferase (AST) 10 U/L (15-37) L Alanine Aminotransferase (ALT) 9 U/L (16-63) L Alkaline Phosphatase 66 U/L (46-116) Creatine Kinase 30 U/L (39-308) L Creatine Kinase MB (Mass) < 0.5 ng/mL (0.0-3.6) Creatine Kinase MB Relative Index % (0-4) Troponin I Quantitative < 0.017 ng/mL (0.000-0.055) Total Protein 8.6 g/dL (6.4-8.2) H Albumin 3.8 g/dL (3.4-5.0) Albumin/Globulin Ratio 0.8 (1.0-1.7) L Laboratory Tests 05/30/19 10:50 Laboratory Tests 05/30/19 10:50 EKG EKG EKG interpreted by Dr. Epi Ferrera with rate of 62, RBBB, NO STEMI. Compared to EKG on 04/19/2017 and patient also has RBBB at this time. Radiology/Procedures Radiology/Procedures [][facility] [address] [place] [address] IMAGING REPORT Signed PATIENT: SAMI FERRER ACCOUNT: [id number] : 1960 LOCATION: ER AGE: 58 SEX: M EXAM STATUS: REG ER ORD. PHYSICIAN: FARAZ KRAMER APRN REASON: palpitations,pt states heart racing. PROCEDURE: CHEST PA & LATERAL Two-view chest HISTORY: Palpitations, heart racing. COMPARISON: April 15, 2017 image, without report. The cardiomediastinal silhouette is stable. Markings in both lower lungs are again identified, but appear greater than what was seen previously. No pneumothorax. No large effusion. No pneumothorax. Bones appear grossly intact. IMPRESSION: Abnormal ill-defined opacities in both lower lungs were also seen previously, but appear greater on today's study. Most suspicious for acute abnormality, such as inflammatory or infectious etiology, superimposed upon chronic disease. Electronically signed by: Faraz Vick MD (05/30/2019 11:17 AM) [facility] DICTATED and SIGNED BY: FARAZ VICK MD DATE: 05/30/191116 Course & Med Decision Making Course & Med Decision Making Pertinent Labs and Imaging studies reviewed. (See chart for details) Will get labs, EKG, Chest X-ray, and give ASA. Concern for possible pneumonia. Will order antibiotics, lactic, cultures and admit to hospital. Discussed with Dr. Jenkins who agrees to admission to hospital. Will consult pulmonary. Dragon Disclaimer Dragon Disclaimer This electronic medical record was generated, in whole or in part, using a voice recognition dictation system. Departure Departure Impression: Primary Impression: Palpitations Additional Impression: Pneumonia Disposition: 09 ADMITTED INPATIENT Admitting Physician: DELISA Condition: STABLE Referrals: GARY EDWARD (PCP) The HEART Score for CP Pts HEART Score for Chest Pain: HEART Score for Chest Pain Response (Comments) Value History Slighlty/Non-Suspicious 0 ECG Nonspecific Repolarizatio 1 Age >45 - < 65 1 Risk Factors >3 Risk Factors or Hx CAD 2 Troponin < Normal Limit 0 Total 4 Risk Factors: Risk Factors: DM, Current or recent (<one month) smoker, HTN, HLP, family history of CAD, obesity. Risk Scores: Score 0 - 3: 2.5% MACE over next 6 weeks - Discharge Home Score 4 - 6: 20.3% MACE over next 6 weeks - Admit for Clinical Observation Score 7 - 10: 72.7% MACE over next 6 weeks - Early Invasive Strategies Problem Qualifiers FARAZ KRAMER APRN May 30, 2019 10:40
[2019-05-30] MEDS ORDERED: ASPIRIN CHEWABLE 81 MG TABLET. PO ONE (10:45)
--- NOTE | 2019-05-30 10:54 | EKG ---
[facility] [address] [place] [address] Test Date: 2019-05-30 Test Time: 10:29:47 Pat Name: SAMI FERRER Department: Room: Gender: M [employer]: : 1960 Requested By: SKIP KRAMER Order Number: [id number] Reading MD: Maxime Stevenson MD Measurements Intervals Otho Rate: 62 P: -28 AR: 164 QRS: 19 QRSD: 124 T: 3 QT: 416 QTc: 424 Interpretive Statements SINUS RHYTHM RIGHT BUNDLE BRANCH BLOCK Electronically Signed On 06-06-2019 11:32:12 CDT by Maxime Stevenson MD
[2019-05-30 11:08] LABS: BASO # 0.2 x10^3/uL (0.0-0.2); BASO % 1 % (0-3); EOS # 0.2 x10^3/uL (0.0-0.7); EOS % 2 % (0-3); HEMATOCRIT 48.5 % (39.0-53.0); HEMOGLOBIN 16.3 g/dL (13.0-17.5); LYMPH # 2.9 x10^3/uL (1.0-4.8); LYMPH % 25 % (24-48); MEAN CORPUSCULAR HEMOGLOBIN 29 pg (25-35); MEAN CORPUSCULAR HGB CONC 34 g/dL (31-37); MEAN CORPUSCULAR VOLUME 88 fL (79-100); MONO # 0.7 x10^3/uL (0.0-1.1); MONO % 6 % (0-9); NEUT # 7.7 x10^3/uL (1.8-7.7); NEUT % 66 % (31-73); PLATELET COUNT 305 x10^3/uL (140-400); RED BLOOD COUNT 5.53 x10^6/uL (4.30-5.70); WHITE BLOOD COUNT 11.8 x10^3/uL (4.0-11.0)
[2019-05-30 11:12] LABS: CALCIUM 9.6 mg/dL (8.5-10.1); CREATININE 0.9 mg/dL (0.7-1.3); GFR 86.4; POTASSIUM 3.7 mmol/L (3.5-5.1)
[2019-05-30 11:18] LABS: ALBUMIN 3.8 g/dL (3.4-5.0); ALBUMIN/GLOBULIN RATIO 0.8 (1.0-1.7); TOTAL BILIRUBIN 0.5 mg/dL (0.2-1.0); TOTAL PROTEIN 8.6 g/dL (6.4-8.2)
--- NOTE | 2019-05-30 11:20 | RAD ---
Two-view chest HISTORY: Palpitations, heart racing. COMPARISON: April 15, 2017 image, without report. The cardiomediastinal silhouette is stable. Markings in both lower lungs are again identified, but appear greater than what was seen previously. No pneumothorax. No large effusion. No pneumothorax. Bones appear grossly intact. IMPRESSION: Abnormal ill-defined opacities in both lower lungs were also seen previously, but appear greater on today's study. Most suspicious for acute abnormality, such as inflammatory or infectious etiology, superimposed upon chronic disease. Electronically signed by: Faraz Vick MD (05/30/2019 11:17 AM) [facility]
[2019-05-30 11:26] LABS: CREATINE KINASE 30 U/L (39-308)
[2019-05-30] MEDS ORDERED: AZITHRMYCN 500MG IVPB FOR OMNI 250 ML IV ONE (12:15)
[2019-05-30] MEDS ORDERED: cefTRIAXone IV Push 1 GM VIAL. IVP ONE (12:15)
[2019-05-30] MEDS ORDERED: ONDANSETRON PF 4 MG/2 ML VIAL. IV PRN (12:30)
[2019-05-30] MEDS: MORPHINE SULFATE 4 MG/ML VIAL. IV PRN ×2 (12:54→16:43)
[2019-05-30] MEDS: IPRATRPIUM/ALBUTEROL 0.5/2.5MG 3 ML NEBU. NEB SCH ×3 (12:54→21:43)
[2019-05-30] MEDS ORDERED: diphenhydrAMINE HCL 25 MG CAPSULE PO ONE (13:30)
[2019-05-30 14:26] VITALS: BP 148/94
--- NOTE | 2019-05-30 17:20 | PDOC ---
PULMONARY PROGRESS NOTES Vitals Vital Signs Date Time Temp Pulse Resp B/P (MAP) Pulse Ox O2 Delivery O2 Flow Rate FiO2 05/30/19 16:43 16 Room Air 05/30/19 16:17 97 05/30/19 14:26 98.0 65 148/94 (112) 98.0 General: Alert, Oriented X4 HEENT: Other Lungs: Crackles Cardiovascular: S1, S2 Abdomen: Soft, Non-tender Extremities: Other Labs Laboratory Tests Test 05/30/19 10:50 05/30/19 13:10 05/30/19 17:11 White Blood Count 11.8 x10^3/uL (4.0-11.0) Red Blood Count 5.53 x10^6/uL (4.30-5.70) Hemoglobin 16.3 g/dL (13.0-17.5) Hematocrit 48.5 % (39.0-53.0) Mean Corpuscular Volume 88 fL (79-100) Mean Corpuscular Hemoglobin 29 pg (25-35) Mean Corpuscular Hemoglobin Concent 34 g/dL (31-37) Red Cell Distribution Width 17.0 % (11.5-14.5) Platelet Count 305 x10^3/uL (140-400) Neutrophils (%) (Auto) 66 % (31-73) Lymphocytes (%) (Auto) 25 % (24-48) Monocytes (%) (Auto) 6 % (0-9) Eosinophils (%) (Auto) 2 % (0-3) Basophils (%) (Auto) 1 % (0-3) Neutrophils # (Auto) 7.7 x10^3/uL (1.8-7.7) Lymphocytes # (Auto) 2.9 x10^3/uL (1.0-4.8) Monocytes # (Auto) 0.7 x10^3/uL (0.0-1.1) Eosinophils # (Auto) 0.2 x10^3/uL (0.0-0.7) Basophils # (Auto) 0.2 x10^3/uL (0.0-0.2) Sodium Level 137 mmol/L (136-145) Potassium Level 3.7 mmol/L (3.5-5.1) Chloride Level 98 mmol/L (98-107) Carbon Dioxide Level 28 mmol/L (21-32) Anion Gap 11 (6-14) Blood Urea Nitrogen 11 mg/dL (8-26) Creatinine 0.9 mg/dL (0.7-1.3) Estimated GFR (Cockcroft-Gault) 86.4 BUN/Creatinine Ratio 12 (6-20) Glucose Level 198 mg/dL (70-99) Calcium Level 9.6 mg/dL (8.5-10.1) Total Bilirubin 0.5 mg/dL (0.2-1.0) Aspartate Amino Transf (AST/SGOT) 10 U/L (15-37) Alanine Aminotransferase (ALT/SGPT) 9 U/L (16-63) Alkaline Phosphatase 66 U/L (46-116) Creatine Kinase 30 U/L (39-308) Creatine Kinase MB (Mass) < 0.5 ng/mL (0.0-3.6) Creatine Kinase MB Relative Index % (0-4) Troponin I Quantitative < 0.017 ng/mL (0.000-0.055) Total Protein 8.6 g/dL (6.4-8.2) Albumin 3.8 g/dL (3.4-5.0) Albumin/Globulin Ratio 0.8 (1.0-1.7) Lactic Acid Level 2.0 mmol/L (0.4-2.0) Glucose (Fingerstick) 140 mg/dL (70-99) Laboratory Tests Test 05/30/19 10:50 05/30/19 13:10 05/30/19 17:11 White Blood Count 11.8 x10^3/uL (4.0-11.0) Red Blood Count 5.53 x10^6/uL (4.30-5.70) Hemoglobin 16.3 g/dL (13.0-17.5) Hematocrit 48.5 % (39.0-53.0) Mean Corpuscular Volume 88 fL (79-100) Mean Corpuscular Hemoglobin 29 pg (25-35) Mean Corpuscular Hemoglobin Concent 34 g/dL (31-37) Red Cell Distribution Width 17.0 % (11.5-14.5) Platelet Count 305 x10^3/uL (140-400) Neutrophils (%) (Auto) 66 % (31-73) Lymphocytes (%) (Auto) 25 % (24-48) Monocytes (%) (Auto) 6 % (0-9) Eosinophils (%) (Auto) 2 % (0-3) Basophils (%) (Auto) 1 % (0-3) Neutrophils # (Auto) 7.7 x10^3/uL (1.8-7.7) Lymphocytes # (Auto) 2.9 x10^3/uL (1.0-4.8) Monocytes # (Auto) 0.7 x10^3/uL (0.0-1.1) Eosinophils # (Auto) 0.2 x10^3/uL (0.0-0.7) Basophils # (Auto) 0.2 x10^3/uL (0.0-0.2) Sodium Level 137 mmol/L (136-145) Potassium Level 3.7 mmol/L (3.5-5.1) Chloride Level 98 mmol/L (98-107) Carbon Dioxide Level 28 mmol/L (21-32) Anion Gap 11 (6-14) Blood Urea Nitrogen 11 mg/dL (8-26) Creatinine 0.9 mg/dL (0.7-1.3) Estimated GFR (Cockcroft-Gault) 86.4 BUN/Creatinine Ratio 12 (6-20) Glucose Level 198 mg/dL (70-99) Calcium Level 9.6 mg/dL (8.5-10.1) Total Bilirubin 0.5 mg/dL (0.2-1.0) Aspartate Amino Transf (AST/SGOT) 10 U/L (15-37) Alanine Aminotransferase (ALT/SGPT) 9 U/L (16-63) Alkaline Phosphatase 66 U/L (46-116) Creatine Kinase 30 U/L (39-308) Creatine Kinase MB (Mass) < 0.5 ng/mL (0.0-3.6) Creatine Kinase MB Relative Index % (0-4) Troponin I Quantitative < 0.017 ng/mL (0.000-0.055) Total Protein 8.6 g/dL (6.4-8.2) Albumin 3.8 g/dL (3.4-5.0) Albumin/Globulin Ratio 0.8 (1.0-1.7) Lactic Acid Level 2.0 mmol/L (0.4-2.0) Glucose (Fingerstick) 140 mg/dL (70-99) Medications Active Scripts Medications Dose Route/Sig Max Daily Dose Days Date Category Dose Instructions Lisinopril 20 Mg Tablet 20 Mg PO DAILY 04/19/17 Rx Aspirin Ec (Aspirin) 325 Mg Tablet.dr 325 Mg PO DAILYWBKFT 04/19/17 Rx Flomax (Tamsulosin Hcl) 0.4 Mg Cap.er.24h 2 Cap PO DAILY 04/15/17 Reported Avodart (Dutasteride) 0.5 Mg Capsule 0.5 Mg PO DAILY 02/20/17 Reported Methotrexate (Methotrexate Sodium) 2.5 Mg Tablet 4 Tab PO WEEKLY 02/20/17 Reported ON THURSDAYS Pravastatin Sodium 40 Mg Tablet 40 Mg PO DAILY 02/20/17 Reported Omeprazole 40 Mg Capsule.dr 40 Mg PO DAILY 02/20/17 Reported Metformin Hcl 1,000 Mg Tablet 1 Tab PO BID 07/02/16 Reported Impression . ABNORMAL CXR WILL CHECK CT CHEST THANKS ABNER SHEPARD MD May 30, 2019 17:20
[2019-05-30] MEDS: metFORMIN 500 MG TABLET PO SCH (17:24)
[2019-05-30] MEDS: predniSONE 20 MG TABLET PO SCH (18:37)
[2019-05-30] MEDS ORDERED: FLEC100T PO (19:34)
[2019-05-30] MEDS ORDERED: LISI10TA2 PO (19:34)
[2019-05-30] MEDS ORDERED: FENT1PAT21 TP (19:34)
[2019-05-30] MEDS ORDERED: DESO15CR8 TP (19:34)
[2019-05-30] MEDS ORDERED: PRED20TA PO (19:34)
[2019-05-30] MEDS ORDERED: METO-239 PO (19:34)
[2019-05-30] MEDS ORDERED: DESO60OI7 TP (19:34)
[2019-05-30] MEDS ORDERED: FURO20TA3 PO (19:34)
[2019-05-30] MEDS ORDERED: OXYC30TA3 PO (19:34)
[2019-05-30] MEDS ORDERED: DICL100G18 TP (19:36)
[2019-05-30 19:42] VITALS: BP 111/75
--- NOTE | 2019-05-30 19:42 | RAD ---
CT CHEST WO CONTRAST History: Possible interstitial lung disease. Technique: Noncontrast CT of the chest was performed. Coronal and sagittal reconstructions were performed. Exposure: One or more of the following individualized dose reduction techniques were utilized for this examination: 1. Automated exposure control 2. Adjustment of the mA and/or kV according to patient size 3. Use of iterative reconstruction technique. Comparison: Chest x-ray May 30, 2019. CT April 15, 2017. February 20, 2013 Findings: Chest: No pathologic axillary, mediastinal or hilar adenopathy. Calcified left hilar lymph nodes with calcified granulomas, likely related to prior granulomas disease. Coronary artery calcification. No focal consolidation or pleural effusion. Mild lingular atelectasis or scarring. No evidence of pulmonary fibrosis. Minimal paraseptal emphysema. 5 mm right medial upper lobe pulmonary nodule (image #23). Obscured by opacity on prior CT. Upper abdomen: The imaged upper abdomen is unremarkable. Bones: No pathologic osseous lesions. Impression: 1. No evidence of pulmonary fibrosis. Scattered linear atelectasis or scarring. 2. Minimal paraseptal emphysema. 3. Right upper lobe pulmonary nodule. Recommend one-year follow-up. Electronically signed by: Greg Ruiz DO (05/30/2019 7:39 PM) [facility]
[2019-05-30] MEDS ORDERED: OXYC60TA7 PO (20:22)
[2019-05-30] MEDS ORDERED: fentaNYL 100MCG/HR PATCH 1 PATCH PATCH TD SCH (21:00)
[2019-05-30] MEDS ORDERED: FLUOCINONIDE 0.05% TOPICAL CREAM 15 GM TUBE. TP PRN (21:00)
[2019-05-30] MEDS: FLECAINIDE ACETATE 50 MG TABLET. PO SCH (21:07)
[2019-05-30] MEDS: oxyCODONE ER 15 MG TAB.ER.12H PO SCH (21:07)
[2019-05-30] MEDS: ATORVASTATIN CALCIUM 10 MG TABLET. PO SCH (21:08)
[2019-05-30] MEDS: DICLOFENAC SODIUM 1% TOPICAL GEL 100GM TUBE. TP SCH (21:08)
[2019-05-30] MEDS: NICOTINE 14MG PATCH. TD SCH (21:08)
--- NOTE | 2019-05-30 23:31 | CONS ---
DATE OF CONSULTATION: 05/30/2019 ATTENDING PHYSICIAN: Faraz Beverly MD CONSULTING PHYSICIAN: Abner Shepard MD REASON FOR CONSULTATION: The patient seen in pulmonary consultation at the request of Dr. Beverly for abnormal x-ray. HISTORY OF PRESENT ILLNESS: The patient is a 58-year-old that presented with palpitation and some chest discomfort along with minimal amount of shortness of breath. He underwent chest x-ray, which revealed bilateral opacities. I was asked to see him in consultation. The patient does have a history of COPD, prior Legionella pneumonia was hospitalized for a prolonged period of time and continues to smoke one pack of cigarette a day, presents with the above symptoms. No hemoptysis, no documented fever. No nausea, vomiting, diarrhea. PAST MEDICAL HISTORY: 1. COPD. 2. Tobacco dependent. 3. Chronic AFib. 4. Arthritis. 5. Type 2 diabetes. 6. Hypertension. 7. Psoriatic arthritis. 8. History of Legionella disease. 9. Hyperlipidemia. PAST SURGICAL HISTORY: Status post bilateral knee surgical intervention. REVIEW OF SYSTEMS: CONSTITUTIONAL: No fever or chills. EYES: No change in visual acuity. HENT: No nasal congestion or sore throat. PULMONARY: As indicated above. CARDIOVASCULAR: No chest pain or pressure. GASTROINTESTINAL: No nausea, vomiting, diarrhea. GENITOURINARY: No dysuria or frequency. MUSCULOSKELETAL: Chronic pain. No localized muscle aches or joint pain. SKIN: No new skin rashes. NEUROLOGIC: No headaches, diplopia or blurred vision. ALLERGIES: TO PENICILLIN AND NEOMYCIN. SOCIAL HISTORY: He continues to smoke. No current use of alcohol. No current use of any illicit drugs. FAMILY HISTORY: No family history of lung disorders. CURRENT MEDICATION: List was reviewed. PHYSICAL EXAMINATION: GENERAL: The patient was in no respiratory distress. VITAL SIGNS: Room air saturation was greater than 92%. HEENT: Eyes, the sclerae was nonicteric. NECK: Jugular venous distention was not elevated. No lymphadenopathy. CHEST: Full expansion. LUNGS: Adequate airway flow with no wheezes. CARDIOVASCULAR: Regular rate and rhythm with S1, S2, no S3. ABDOMEN: Soft, nontender, nondistended. EXTREMITIES: No clubbing, cyanosis or edema. NEUROLOGICAL: The patient was awake, alert, following commands. A detailed neuro exam was not performed. LABORATORY DATA: Hemoglobin and hematocrit was noted. White count was slightly elevated. Chest x-ray as indicated above revealing ill-defined opacities in the both lower lobes. IMPRESSION: 1. Abnormal x-ray revealing bilateral opacities in the bases, suspect chronic changes, possible early interstitial lung disease. 2. Tobacco dependence. 3. Acute exacerbation of chronic obstructive pulmonary disease. 4. Atrial fibrillation. 5. Chest pain. 6. Other comorbidities as indicated above including type 2 diabetes, chronic pain, psoriatic arthritis. PLAN: 1. We will proceed with CT chest. 2. Treat acute exacerbation of COPD. 3. Continue home meds. I do appreciate the privilege in sharing in the patient's care. ABNER SHEPARD MD DR: MELBA/maulik JOB#: [id number] / [id number]
[2019-05-30 23:49] VITALS: BP 137/89
[2019-05-31 03:05] VITALS: BP 135/85
[2019-05-31] MEDS: MORPHINE SULFATE 4 MG/ML VIAL. IV PRN (06:20)
[2019-05-31 07:00] VITALS: BP 175/99
[2019-05-31] MEDS: IPRATRPIUM/ALBUTEROL 0.5/2.5MG 3 ML NEBU. NEB SCH ×4 (08:49→19:17)
[2019-05-31] MEDS ORDERED: LISINOPRIL 20 MG TABLET PO SCH ×2 (09:00)
[2019-05-31] MEDS: METOPROLOL SUCC 24HR ER 25 MG TAB.ER.24H. PO SCH (09:00)
--- NOTE | 2019-05-31 09:29 | NUR ---
SS following for discharge planning. SS reviewed pt chart. Pt is from home and is currently on room air. SS will continue to follow for discharge planning.
--- NOTE | 2019-05-31 09:37 | PDOC ---
PULMONARY PROGRESS NOTES Subjective PT FEELS LESS SOA ARTHRITIS TYPE OF PAIN Vitals Vital Signs Date Time Temp Pulse Resp B/P (MAP) Pulse Ox O2 Delivery O2 Flow Rate FiO2 05/31/19 08:50 98 Room Air 05/31/19 07:00 97.8 54 18 175/99 (124) 97.8 ROS: No Nausea, No Chest Pain, No Abdominal Pain, No Increase Cough General: Alert, Oriented X4 Lungs: Crackles Cardiovascular: S1, S2 Abdomen: Soft, Non-tender Neuro Exam: Alert Extremities: No Edema Skin: Warm Labs Laboratory Tests Test 05/30/19 10:50 05/30/19 13:10 05/30/19 16:35 05/30/19 17:11 White Blood Count 11.8 x10^3/uL (4.0-11.0) Red Blood Count 5.53 x10^6/uL (4.30-5.70) Hemoglobin 16.3 g/dL (13.0-17.5) Hematocrit 48.5 % (39.0-53.0) Mean Corpuscular Volume 88 fL (79-100) Mean Corpuscular Hemoglobin 29 pg (25-35) Mean Corpuscular Hemoglobin Concent 34 g/dL (31-37) Red Cell Distribution Width 17.0 % (11.5-14.5) Platelet Count 305 x10^3/uL (140-400) Neutrophils (%) (Auto) 66 % (31-73) Lymphocytes (%) (Auto) 25 % (24-48) Monocytes (%) (Auto) 6 % (0-9) Eosinophils (%) (Auto) 2 % (0-3) Basophils (%) (Auto) 1 % (0-3) Neutrophils # (Auto) 7.7 x10^3/uL (1.8-7.7) Lymphocytes # (Auto) 2.9 x10^3/uL (1.0-4.8) Monocytes # (Auto) 0.7 x10^3/uL (0.0-1.1) Eosinophils # (Auto) 0.2 x10^3/uL (0.0-0.7) Basophils # (Auto) 0.2 x10^3/uL (0.0-0.2) Sodium Level 137 mmol/L (136-145) Potassium Level 3.7 mmol/L (3.5-5.1) Chloride Level 98 mmol/L (98-107) Carbon Dioxide Level 28 mmol/L (21-32) Anion Gap 11 (6-14) Blood Urea Nitrogen 11 mg/dL (8-26) Creatinine 0.9 mg/dL (0.7-1.3) Estimated GFR (Cockcroft-Gault) 86.4 BUN/Creatinine Ratio 12 (6-20) Glucose Level 198 mg/dL (70-99) Calcium Level 9.6 mg/dL (8.5-10.1) Total Bilirubin 0.5 mg/dL (0.2-1.0) Aspartate Amino Transf (AST/SGOT) 10 U/L (15-37) Alanine Aminotransferase (ALT/SGPT) 9 U/L (16-63) Alkaline Phosphatase 66 U/L (46-116) Creatine Kinase 30 U/L (39-308) Creatine Kinase MB (Mass) < 0.5 ng/mL (0.0-3.6) Creatine Kinase MB Relative Index % (0-4) Troponin I Quantitative < 0.017 ng/mL (0.000-0.055) Total Protein 8.6 g/dL (6.4-8.2) Albumin 3.8 g/dL (3.4-5.0) Albumin/Globulin Ratio 0.8 (1.0-1.7) Thyroid Stimulating Hormone (TSH) 0.501 uIU/mL (0.358-3.74) Lactic Acid Level 2.0 mmol/L (0.4-2.0) 1.6 mmol/L (0.4-2.0) Glucose (Fingerstick) 140 mg/dL (70-99) Test 05/30/19 19:52 05/31/19 07:30 Glucose (Fingerstick) 154 mg/dL (70-99) 105 mg/dL (70-99) Laboratory Tests Test 05/30/19 10:50 05/30/19 13:10 05/30/19 16:35 05/30/19 17:11 White Blood Count 11.8 x10^3/uL (4.0-11.0) Red Blood Count 5.53 x10^6/uL (4.30-5.70) Hemoglobin 16.3 g/dL (13.0-17.5) Hematocrit 48.5 % (39.0-53.0) Mean Corpuscular Volume 88 fL (79-100) Mean Corpuscular Hemoglobin 29 pg (25-35) Mean Corpuscular Hemoglobin Concent 34 g/dL (31-37) Red Cell Distribution Width 17.0 % (11.5-14.5) Platelet Count 305 x10^3/uL (140-400) Neutrophils (%) (Auto) 66 % (31-73) Lymphocytes (%) (Auto) 25 % (24-48) Monocytes (%) (Auto) 6 % (0-9) Eosinophils (%) (Auto) 2 % (0-3) Basophils (%) (Auto) 1 % (0-3) Neutrophils # (Auto) 7.7 x10^3/uL (1.8-7.7) Lymphocytes # (Auto) 2.9 x10^3/uL (1.0-4.8) Monocytes # (Auto) 0.7 x10^3/uL (0.0-1.1) Eosinophils # (Auto) 0.2 x10^3/uL (0.0-0.7) Basophils # (Auto) 0.2 x10^3/uL (0.0-0.2) Sodium Level 137 mmol/L (136-145) Potassium Level 3.7 mmol/L (3.5-5.1) Chloride Level 98 mmol/L (98-107) Carbon Dioxide Level 28 mmol/L (21-32) Anion Gap 11 (6-14) Blood Urea Nitrogen 11 mg/dL (8-26) Creatinine 0.9 mg/dL (0.7-1.3) Estimated GFR (Cockcroft-Gault) 86.4 BUN/Creatinine Ratio 12 (6-20) Glucose Level 198 mg/dL (70-99) Calcium Level 9.6 mg/dL (8.5-10.1) Total Bilirubin 0.5 mg/dL (0.2-1.0) Aspartate Amino Transf (AST/SGOT) 10 U/L (15-37) Alanine Aminotransferase (ALT/SGPT) 9 U/L (16-63) Alkaline Phosphatase 66 U/L (46-116) Creatine Kinase 30 U/L (39-308) Creatine Kinase MB (Mass) < 0.5 ng/mL (0.0-3.6) Creatine Kinase MB Relative Index % (0-4) Troponin I Quantitative < 0.017 ng/mL (0.000-0.055) Total Protein 8.6 g/dL (6.4-8.2) Albumin 3.8 g/dL (3.4-5.0) Albumin/Globulin Ratio 0.8 (1.0-1.7) Thyroid Stimulating Hormone (TSH) 0.501 uIU/mL (0.358-3.74) Lactic Acid Level 2.0 mmol/L (0.4-2.0) 1.6 mmol/L (0.4-2.0) Glucose (Fingerstick) 140 mg/dL (70-99) Test 05/30/19 19:52 05/31/19 07:30 Glucose (Fingerstick) 154 mg/dL (70-99) 105 mg/dL (70-99) Medications Active Scripts Medications Dose Route/Sig Max Daily Dose Days Date Category Dose Instructions Lisinopril 20 Mg Tablet 20 Mg PO DAILY 04/19/17 Rx Aspirin Ec (Aspirin) 325 Mg Tablet.dr 325 Mg PO DAILYWBKFT 04/19/17 Rx Flomax (Tamsulosin Hcl) 0.4 Mg Cap.er.24h 2 Cap PO DAILY 04/15/17 Reported Avodart (Dutasteride) 0.5 Mg Capsule 0.5 Mg PO DAILY 02/20/17 Reported Methotrexate (Methotrexate Sodium) 2.5 Mg Tablet 4 Tab PO WEEKLY 02/20/17 Reported ON THURSDAYS Pravastatin Sodium 40 Mg Tablet 40 Mg PO DAILY 02/20/17 Reported Omeprazole 40 Mg Capsule.dr 40 Mg PO DAILY 02/20/17 Reported Metformin Hcl 1,000 Mg Tablet 1 Tab PO BID 07/02/16 Reported Impression . IMPRESSION: 1. Abnormal x-ray revealing bilateral opacities in the bases, suspect chronic changes, possible early interstitial lung disease. 2. Tobacco dependence. 3. Acute exacerbation of chronic obstructive pulmonary disease. 4. Atrial fibrillation. 5. Chest pain. 6. Other comorbidities as indicated above including type 2 diabetes, chronic pain, psoriatic arthritis. CT REPORT Impression: 1. No evidence of pulmonary fibrosis. Scattered linear atelectasis or scarring. 2. Minimal paraseptal emphysema. 3. Right upper lobe pulmonary nodule. Recommend one-year follow-up. Plan . FOLLOW UP CT IN 4 MONTHS CONTINUE THE SAME HOME PER PCP ABNER SHEPARD MD May 31, 2019 09:37
[2019-05-31] MEDS: TAMSULOSIN 0.4 MG CAP.ER.24H. PO SCH (09:39)
[2019-05-31] MEDS: predniSONE 20 MG TABLET PO SCH (09:39)
[2019-05-31] MEDS: DUTASTERIDE 0.5 MG CAPSULE PO SCH (09:40)
[2019-05-31] MEDS: oxyCODONE ER 15 MG TAB.ER.12H PO SCH ×2 (09:40→20:49)
[2019-05-31 09:41] LABS: BASO # 0.1 x10^3/uL (0.0-0.2); BASO % 1 % (0-3); EOS # 0.1 x10^3/uL (0.0-0.7); EOS % 1 % (0-3); HEMATOCRIT 45.2 % (39.0-53.0); HEMOGLOBIN 15.1 g/dL (13.0-17.5); LYMPH % 25 % (24-48); MEAN CORPUSCULAR HEMOGLOBIN 29 pg (25-35); MEAN CORPUSCULAR HGB CONC 33 g/dL (31-37); MEAN CORPUSCULAR VOLUME 87 fL (79-100); MONO # 0.7 x10^3/uL (0.0-1.1); MONO % 5 % (0-9); NEUT # 8.3 x10^3/uL (1.8-7.7); NEUT % 68 % (31-73); PLATELET COUNT 279 x10^3/uL (140-400); RED BLOOD COUNT 5.22 x10^6/uL (4.30-5.70); RED CELL DISTRIBUTION WIDTH 17.2 % (11.5-14.5); WHITE BLOOD COUNT 12.2 x10^3/uL (4.0-11.0)
[2019-05-31] MEDS: metFORMIN 500 MG TABLET PO SCH ×2 (09:41→17:26)
[2019-05-31] MEDS: ASPIRIN ENTERIC COATED 325 MG TABLET.DR. PO SCH (09:41)
[2019-05-31] MEDS: PANTOPRAZOLE 40 MG TABLET.DR. PO SCH (09:41)
[2019-05-31] MEDS: FLECAINIDE ACETATE 50 MG TABLET. PO SCH ×3 (09:42→20:52)
[2019-05-31] MEDS: NICOTINE 14MG PATCH. TD SCH (09:43)
[2019-05-31] MEDS: LISINOPRIL 10 MG TABLET PO SCH (09:43)
[2019-05-31] MEDS: DICLOFENAC SODIUM 1% TOPICAL GEL 100GM TUBE. TP SCH ×4 (09:44→23:26)
--- NOTE | 2019-05-31 09:56 | HP ---
ADMIT DATE: 05/30/2019 CHIEF COMPLAINT: Chest pain. HISTORY OF PRESENT ILLNESS AND HOSPITAL COURSE: The patient is a 58-year-old male with history of psoriatic arthritis and atrial fibrillation, came to the hospital complaining of increased chest pains. He states he has had increased generalized pain due to changes in weather and increased pain from his arthritis. He denies significant shortness of breath, diaphoresis or nausea, but does have palpitations. He came to the ER and evaluation showed negative cardiac evaluation, but possible pneumonia on x-ray. The patient was started on antibiotics and admitted to the hospital for pulmonary consultation. Initial CT followup did not confirm pneumonia, but rather interstitial scarring and atelectasis with emphysema. There is a small 5 mm right pulmonary nodule, which will require followup in 1 year. Cardiology consultation was also considered, but pain was atypical. Echo was ordered by Cardiology and is pending at the time of this dictation. PAST MEDICAL HISTORY: Significant for: 1. Atrial fibrillation. 2. Hypertension. 3. Hyperlipidemia. 4. Psoriatic arthritis. 5. BPH. 6. Type 2 diabetes. 7. Peripheral neuropathy. 8. Psoriasis. FAMILY HISTORY: Mother with history of cancer and hypertension. Father with complications of alcoholism and lymphoma. The patient's father also had heart disease and hypertension. Brother had lung cancer and another brother had colon cancer. He had a sister who with lung cancer. His brothers also . SOCIAL HISTORY: The patient continues to smoke approximately a pack per day with a history of 2 packs a day smoking in the past. The patient does not use alcohol. He is on disability and is single, living on his own. ALLERGIES: THE PATIENT HAS ALLERGIES TO PENICILLIN AND NEOMYCIN. REVIEW OF SYSTEMS: The patient denied cough, congestion, fever, weight loss, weight gain, or night sweats. PHYSICAL EXAMINATION: GENERAL: Well-nourished, well-developed male, in no apparent distress. He is alert and oriented x 3. HEENT: Benign. NECK: Supple, without JVD or bruits. CARDIAC: Regular rate and rhythm. LUNGS: Clear. His chest was tender to palpation, reproducing his ongoing pains. ABDOMEN: Soft, nontender. EXTREMITIES: Have 2+ pulses without edema. NEUROLOGIC: Intact. He had extremity deformities consistent with arthritis. ASSESSMENT: 1. Chest wall pain. 2. Pulmonary atelectasis. 3. Palpitations with history of atrial fibrillation. PLAN: To proceed with pulmonary recommendations. Possible discharge to home after evaluation and pain control. Consider cardiac evaluation as an outpatient. SKIP WHITNEY MD DR: CHAZ/maulik JOB#: [id number] / [id number]
[2019-05-31] MEDS: ENOXAPARIN 40 MG/0.4 ML SYRINGE. SQ SCH (10:00)
[2019-05-31 10:13] LABS: ALBUMIN 3.5 g/dL (3.4-5.0); ALBUMIN/GLOBULIN RATIO 0.8 (1.0-1.7); CALCIUM 9.3 mg/dL (8.5-10.1); CREATININE 0.7 mg/dL (0.7-1.3); GFR 115.4; POTASSIUM 3.6 mmol/L (3.5-5.1); TOTAL BILIRUBIN 0.4 mg/dL (0.2-1.0); TOTAL PROTEIN 7.7 g/dL (6.4-8.2)
--- NOTE | 2019-05-31 11:01 | PDOC2 ---
DORIAN CABRERA REED DIPPER 05/31/19 1101: CARDIAC CONSULT DATE OF CONSULT Date of Consult DATE: 05/31/19 TIME: 10:44 REASON FOR CONSULT Reason for Consult: Chest pain REFERRING PHYSICIAN Referring Physician: Siria SOURCE Source: Chart review, Patient HISTORY OF PRESENT ILLNESS HISTORY OF PRESENT ILLNESS This is a pleasant 58 yo male admitted for complains of palpitations. He also complained of chest pain but this is more sharp and reproducible at times with positional changes blaming it on his psoriatic arthritis. He has not been able to move around as much due to his arthiritis particularly his knees which e told me bone on bone and just waiting for December 2019 for his medicare eligibility with disability kicks in and he could have the surgery. Otherwise no exertional CP nor LIND. He does have coughing spells but nonproductive. No fever or chills but does feel hot sometimes. He has occasional palpitations but not associated with dizzy spells or passing out. He has been complaint with his medications. PAST MEDICAL HISTORY Past Medical History Cardiovascular: PAFIB, HTN, Hyperlipidemia, RBBB Pulmonary: Pneumonia CENTRAL NERVOUS SYSTEM: Peripheral neuropathy GI: No pertinent hx Heme/Onc: No pertinent hx Hepatobiliary: No pertinent hx Psych: No pertinent hx Musculoskeletal: Osteoarthritis Rheumatologic: Other (psoriatic arthritis) ENT: No pertinent hx Renal/: Benign prostatic enlarg. Endocrine: Diabetes (2) Dermatology: Other (psoriasis) PAST SURGICAL HISTORY Past Surgical History Arthroscopy (bilateral knee) FAMILY HISTORY Family History Coronary Artery Disease (father in his 50s ) SOCIAL HISTORY Social History Smoke: <1ppd ALCOHOL: none Drugs: None Lives: Friends CURRENT MEDICATIONS CURRENT MEDICATIONS Current Medications Medications (Trade) Dose Ordered Sig/Vanessa Route PRN Reason Start Time Stop Time Status Last Admin Dose Admin Aspirin (Children'S Aspirin) 324 mg 1X ONCE PO 05/30/19 10:45 05/30/19 10:46 DC 05/30/19 10:48 Ceftriaxone Sodium (Rocephin) 1 gm 1X ONCE IVP 05/30/19 12:15 05/30/19 12:16 DC 05/30/19 12:20 Azithromycin 250 ml @ 250 mls/hr 1X ONCE IV 05/30/19 12:15 05/30/19 13:14 DC 05/30/19 12:20 Morphine Sulfate (Morphine Sulfate) 4 mg PRN Q2HR PRN IV PAIN 05/30/19 12:30 05/31/19 12:29 05/31/19 06:20 Albuterol/ Ipratropium (Duoneb) 3 ml RTQID NEB 05/30/19 12:28 05/31/19 12:27 05/31/19 08:49 Diphenhydramine HCl (Benadryl) 25 mg 1X ONCE PO 05/30/19 13:30 05/30/19 13:31 DC 05/30/19 13:30 Aspirin (Ecotrin) 325 mg DAILYWBKFT PO 05/31/19 08:00 05/31/19 09:41 Dutasteride (Avodart) 0.5 mg DAILY PO 05/31/19 09:00 05/31/19 09:40 Tamsulosin HCl (Flomax) 0.8 mg DAILY PO 05/31/19 09:00 05/31/19 09:39 Metformin HCl (Glucophage) 1,000 mg BIDWMEALS PO 05/30/19 17:00 05/31/19 09:41 Pantoprazole Sodium (Protonix) 40 mg DAILYAC PO 05/31/19 07:30 05/31/19 09:41 Atorvastatin Calcium (Lipitor) 10 mg QHS PO 05/30/19 21:00 05/30/19 21:08 Prednisone (Prednisone) 20 mg DAILY PO 05/30/19 18:00 05/31/19 09:39 Diclofenac Sodium (Voltaren) 1 reena QID TP 05/30/19 21:00 05/31/19 09:44 Fentanyl (Duragesic 100mcg/Hr Patch) 1 patch Q72H TD 05/30/19 21:00 05/30/19 21:06 Lisinopril (Prinivil) 10 mg DAILY PO 05/31/19 09:00 05/31/19 09:43 Oxycodone HCl (OxyCONTIN) 60 mg Q12HR PO 05/30/19 21:00 05/31/19 09:40 Flecainide Acetate (Tambocor) 100 mg Q12HR PO 05/30/19 21:00 05/31/19 09:42 Nicotine (Nicoderm Cq 14mg) 1 patch DAILY TD 05/30/19 20:00 05/31/19 09:43 ALLERGIES ALLERGIES: Coded Allergies: Penicillins (Verified Allergy, Severe, anaphalaxis, 05/30/19) TOLERATES MERREM, ZOSYN, CEFTRIAXONE neomycin (Verified Allergy, Intermediate, rash/hives, 07/02/16) ROS Review of System 14 point ROS evaluated with pertinent positives noted per HPI PHYSICAL EXAM General: Alert, Oriented X3, Cooperative, No acute distress HEENT: Atraumatic, Mucous membr. moist/pink Lungs: Other (diminishe bases) Heart: Regular rate (SR), Normal S1, Normal S2, Other (2/6 systolic murmur to LLS border) Abdomen: Soft, No tenderness Extremities: No cyanosis, No edema Skin: No breakdown, No significant lesion Neuro: Normal speech, Sensation intact Psych/Mental Status: Mental status NL, Mood NL MUSCULOSKELETAL: Osteoarthritic changes both hands VITALS/I&O VITALS/I&O: Vital Signs Date Time Temp Pulse Resp B/P (MAP) Pulse Ox O2 Delivery O2 Flow Rate FiO2 05/31/19 09:43 54 175/99 05/31/19 09:40 98 Room Air 05/31/19 07:00 97.8 18 97.8 I & O 05/30/19 05/30/19 05/31/19 15:00 23:00 07:00 Intake Total 440 ml 240 ml Output Total 600 ml 1000 ml Balance -600 ml 440 ml -760 ml LABS Lab: Laboratory Tests Test 05/30/19 10:50 05/30/19 13:10 05/30/19 16:35 05/30/19 17:11 White Blood Count 11.8 x10^3/uL (4.0-11.0) H Red Blood Count 5.53 x10^6/uL (4.30-5.70) Hemoglobin 16.3 g/dL (13.0-17.5) Hematocrit 48.5 % (39.0-53.0) Mean Corpuscular Volume 88 fL (79-100) Mean Corpuscular Hemoglobin 29 pg (25-35) Mean Corpuscular Hemoglobin Concent 34 g/dL (31-37) Red Cell Distribution Width 17.0 % (11.5-14.5) H Platelet Count 305 x10^3/uL (140-400) Neutrophils (%) (Auto) 66 % (31-73) Lymphocytes (%) (Auto) 25 % (24-48) Monocytes (%) (Auto) 6 % (0-9) Eosinophils (%) (Auto) 2 % (0-3) Basophils (%) (Auto) 1 % (0-3) Neutrophils # (Auto) 7.7 x10^3/uL (1.8-7.7) Lymphocytes # (Auto) 2.9 x10^3/uL (1.0-4.8) Monocytes # (Auto) 0.7 x10^3/uL (0.0-1.1) Eosinophils # (Auto) 0.2 x10^3/uL (0.0-0.7) Basophils # (Auto) 0.2 x10^3/uL (0.0-0.2) Sodium Level 137 mmol/L (136-145) Potassium Level 3.7 mmol/L (3.5-5.1) Chloride Level 98 mmol/L (98-107) Carbon Dioxide Level 28 mmol/L (21-32) Anion Gap 11 (6-14) Blood Urea Nitrogen 11 mg/dL (8-26) Creatinine 0.9 mg/dL (0.7-1.3) Estimated GFR (Cockcroft-Gault) 86.4 BUN/Creatinine Ratio 12 (6-20) Glucose Level 198 mg/dL (70-99) H Calcium Level 9.6 mg/dL (8.5-10.1) Total Bilirubin 0.5 mg/dL (0.2-1.0) Aspartate Amino Transferase (AST) 10 U/L (15-37) L Alanine Aminotransferase (ALT) 9 U/L (16-63) L Alkaline Phosphatase 66 U/L (46-116) Creatine Kinase 30 U/L (39-308) L Creatine Kinase MB (Mass) < 0.5 ng/mL (0.0-3.6) Creatine Kinase MB Relative Index % (0-4) Troponin I Quantitative < 0.017 ng/mL (0.000-0.055) Total Protein 8.6 g/dL (6.4-8.2) H Albumin 3.8 g/dL (3.4-5.0) Albumin/Globulin Ratio 0.8 (1.0-1.7) L Thyroid Stimulating Hormone (TSH) 0.501 uIU/mL (0.358-3.74) Lactic Acid Level 2.0 mmol/L (0.4-2.0) 1.6 mmol/L (0.4-2.0) Glucose (Fingerstick) 140 mg/dL (70-99) H Test 05/30/19 19:52 05/31/19 07:30 05/31/19 09:10 Glucose (Fingerstick) 154 mg/dL (70-99) H 105 mg/dL (70-99) H White Blood Count 12.2 x10^3/uL (4.0-11.0) H Red Blood Count 5.22 x10^6/uL (4.30-5.70) Hemoglobin 15.1 g/dL (13.0-17.5) Hematocrit 45.2 % (39.0-53.0) Mean Corpuscular Volume 87 fL (79-100) Mean Corpuscular Hemoglobin 29 pg (25-35) Mean Corpuscular Hemoglobin Concent 33 g/dL (31-37) Red Cell Distribution Width 17.2 % (11.5-14.5) H Platelet Count 279 x10^3/uL (140-400) Neutrophils (%) (Auto) 68 % (31-73) Lymphocytes (%) (Auto) 25 % (24-48) Monocytes (%) (Auto) 5 % (0-9) Eosinophils (%) (Auto) 1 % (0-3) Basophils (%) (Auto) 1 % (0-3) Neutrophils # (Auto) 8.3 x10^3/uL (1.8-7.7) H Lymphocytes # (Auto) 3.0 x10^3/uL (1.0-4.8) Monocytes # (Auto) 0.7 x10^3/uL (0.0-1.1) Eosinophils # (Auto) 0.1 x10^3/uL (0.0-0.7) Basophils # (Auto) 0.1 x10^3/uL (0.0-0.2) Sodium Level 140 mmol/L (136-145) Potassium Level 3.6 mmol/L (3.5-5.1) Chloride Level 103 mmol/L (98-107) Carbon Dioxide Level 25 mmol/L (21-32) Anion Gap 12 (6-14) Blood Urea Nitrogen 10 mg/dL (8-26) Creatinine 0.7 mg/dL (0.7-1.3) Estimated GFR (Cockcroft-Gault) 115.4 BUN/Creatinine Ratio 14 (6-20) Glucose Level 185 mg/dL (70-99) H Calcium Level 9.3 mg/dL (8.5-10.1) Total Bilirubin 0.4 mg/dL (0.2-1.0) Aspartate Amino Transferase (AST) 5 U/L (15-37) L Alanine Aminotransferase (ALT) 10 U/L (16-63) L Alkaline Phosphatase 55 U/L (46-116) Total Protein 7.7 g/dL (6.4-8.2) Albumin 3.5 g/dL (3.4-5.0) Albumin/Globulin Ratio 0.8 (1.0-1.7) L Laboratory Tests 05/30/19 10:50 05/31/19 09:10 Laboratory Tests 05/30/19 10:50 05/31/19 09:10 ECHOCARDIOGRAM ECHOCARDIOGRAM <Conclusion> Left ventricle systolic function is low normal. EF 50%. There is mild global hypokinesis. Cannot rule out subtle basal to mid inferior /inferolateral wall hypokinesis. DATE: 04/15/17 1054 HEART CATH HEART CATH HEMODYNAMICS: LVEDP 18 mm Hg No gradient on LV to aortic pullback. LEFT VENTRICULOGRAM: EF 55% Anterobasal: Normal. Anterolateral: Normal Apical: Normal Diaphragmatic: Normal Posterobasal: Normal CORONARY ANGIOGRAPHY: LM is a large caliber vessel with normal angiographic appearance. LAD is a large caliber vessel with normal angiographic appearance. The apical LAD wraps around the apex serving the territory supplied by the PDA. D1 is a moderate to large caliber vessel with mild luminal irregularities. LCx is a moderate caliber dominant vessel with mild luminal irregularities. LP1, LP2 and LPDA are small to moderate caliber vessels with mild luminal irregularities. RCA is a small caliber non-dominant vessel with normal angiographic appearance. Conclusion 1. Normal LV function. EF 55% 2. Mildly elevated LVEDP at 18 mm Hg. 3. No significant coronary artery disease. Recommendations Aggressive Medical Therapy DATE: 06/03/17 1021 ASSESSMENT/PLAN ASSESSMENT/PLAN 1. COPD: per pulmonary 2. HTN: labile 3. Atypical Chest pain: MSK, noncardiac 4. DM2 5. HLP 6. Hx of PAFIB with chronic RBBB: palpitations potentially could be from AFIB burst but otherwise none overnight 7. Hx of psoriatic arthritis 8. Hx of wrap around LAD Recommendations 1. TTE, Continue toprol and flecainide. Continue lisinopril, uptitrate per BP trend. ASA for stroke prevention 2. Follow up in scheduled 3. Smoking cessation 4. Continue secondary prevention ANTHONY SANDERS MD 06/01/[id number]: CARDIAC CONSULT ASSESSMENT/PLAN ASSESSMENT/PLAN Late entry for 05/31/2019 Pt. seen and examined. Agree with above GUEST EXPERIENCE SPECIALIST note. 58 y.o male well known to us with symptoms suggestive of palpitations. No acute findings noted on EKG/Tele Will consider outpt monitoring on follow up. Thanks. Ok to HAL from CV standpoint. Echo unremarkable. DORIAN CABRERA APRN May 31, 2019 11:01 ANTHONY SANDERS MD Jun 01, 2019 21:39
[2019-05-31 11:12] VITALS: BP 155/95
[2019-05-31] MEDS ORDERED: PRED-220 PO (12:23)
[2019-05-31] MEDS ORDERED: ALBU2.5V8 INH (12:23)
--- NOTE | 2019-05-31 13:20 | CARD ---
MR#: [id number] Date of Study: 05/31/2019 Ordering Physician: DORIAN CABRERA, Referring Physician: DORIAN CABRERA Tech: April Dominguez YAA APPROVED REPORT EXAM: Two-dimensional and M-mode echocardiogram with Doppler and color Doppler. Other Information Quality : Technically LimitedHR: 56bpm Rhythm : PVC'sTechnically limited study due to body habitus and smoking. INDICATION Palpitations 2D DIMENSIONS RVDd3.6 (2.9-3.5cm)Left Atrium(2D)4.0 (1.6-4.0cm) IVSd1.3 (0.7-1.1cm)Aortic Root(2D)3.6 (2.0-3.7cm) LVDd5.2 (3.9-5.9cm)LVOT Diameter2.2 (1.8-2.4cm) PWd1.2 (0.7-1.1cm)LVDs3.8 (2.5-4.0cm) FS (%) 28.0 %SV70.4 ml LVEF(%)53.8 (>50%) M-Mode DIMENSIONS Left Atrium(MM)4.53 (2.5-4.0cm)Aortic Root3.87 (2.2-3.7cm) Aortic Valve AoV Peak Vimal.143.9cm/sAoV VTI24.6cm AO Peak GR.8.3mmHgLVOT Peak Vimal.124.5cm/s AO Mean GR.4mmHgAVA (VMAX)3.33cm2 VIJAY (VTI)3.00cm2 Mitral Valve MV E Dnbbjdjt33.8cm/sMV DECEL THEO194hg MV A Rlpqowia02.8cm/sE/A Ratio0.7 Pulmonary Valve PV Peak Mmumvtss112.5cm/s Tricuspid Valve TR P. Lwxfblrg988mv/sRAP ZWXBZLOQ4zhLt TR Peak Gr.02qjHoCQHF77qyGs LEFT VENTRICLE The left ventricle is normal size. There is mild concentric left ventricular hypertrophy. The left ve ntricular systolic function is normal and the ejection fraction is within normal range. The Ejection Fraction is 55-60%. There is normal LV segmental wall motion. Transmitral Doppler flow pattern is Gra de I-abnormal relaxation pattern. RIGHT VENTRICLE The right ventricle is borderline dilated. There is normal right ventricular wall thickness. The righ t ventricular systolic function is normal. ATRIA The left atrium is mildly dilated. The right atrium is mildly dilated. The interatrial septum is inta ct with no evidence for an atrial septal defect or patent foramen ovale as noted on 2-D or Doppler im aging. AORTIC VALVE The aortic valve is normal in structure and function. The aortic valve is trileaflet. Doppler and Col or Flow revealed no significant aortic regurgitation. There is no significant aortic valvular stenosi s. There is no aortic valvular vegetation. MITRAL VALVE The mitral valve is normal in structure and function. There is no evidence of mitral valve prolapse. There is no mitral valve stenosis. Doppler and Color Flow revealed no mitral valve regurgitation note d. TRICUSPID VALVE The tricuspid valve is normal in structure and function. Doppler and Color Flow revealed trace tricus pid regurgitation. The PA pressure was estimated at 25 mmHg. There is no tricuspid valve prolapse or vegetation. There is no tricuspid valve stenosis. PULMONIC VALVE The pulmonic valve is not well visualized. GREAT VESSELS The aortic root is mildly enlarged. The ascending aorta is normal in size. The IVC is normal in size and collapses >50% with inspiration. PERICARDIAL EFFUSION There is no evidence of significant pericardial effusion. Critical Notification Critical Value: No <Conclusion> The left ventricular systolic function is normal and the ejection fraction is within normal range. Th e Ejection Fraction is 55-60%. There is normal LV segmental wall motion. Signed by : Maxime Stevenson, Electronically Approved : 05/31/2019 13:20:22
[2019-05-31 15:13] VITALS: BP 141/79
[2019-05-31 19:40] VITALS: BP 122/73
[2019-05-31] MEDS: ATORVASTATIN CALCIUM 10 MG TABLET. PO SCH (20:51)
[2019-05-31] MEDS ORDERED: diphenhydrAMINE HCL 25 MG CAPSULE PO ONE (23:30)
[2019-05-31] MEDS ORDERED: ACETAMINOPHEN 500 MG TABLET PO ONE (23:30)
[2019-05-31 23:50] VITALS: BP 143/80
[2019-06-01] MEDS: IPRATRPIUM/ALBUTEROL 0.5/2.5MG 3 ML NEBU. NEB SCH ×2 (07:11→11:14)
[2019-06-01 07:20] VITALS: BP 147/92
[2019-06-01] MEDS: DUTASTERIDE 0.5 MG CAPSULE PO SCH (08:21)
[2019-06-01] MEDS: metFORMIN 500 MG TABLET PO SCH (08:22)
[2019-06-01] MEDS: METOPROLOL SUCC 24HR ER 25 MG TAB.ER.24H. PO SCH (08:23)
[2019-06-01] MEDS: TAMSULOSIN 0.4 MG CAP.ER.24H. PO SCH (08:25)
[2019-06-01] MEDS: LISINOPRIL 10 MG TABLET PO SCH (08:25)
[2019-06-01] MEDS: predniSONE 20 MG TABLET PO SCH (08:25)
[2019-06-01] MEDS: NICOTINE 14MG PATCH. TD SCH (08:26)
[2019-06-01] MEDS: oxyCODONE ER 15 MG TAB.ER.12H PO SCH (08:26)
[2019-06-01] MEDS: ENOXAPARIN 40 MG/0.4 ML SYRINGE. SQ SCH (08:27)
[2019-06-01] MEDS: FLECAINIDE ACETATE 50 MG TABLET. PO SCH (08:28)
[2019-06-01] MEDS: ASPIRIN ENTERIC COATED 325 MG TABLET.DR. PO SCH (08:28)
[2019-06-01] MEDS: PANTOPRAZOLE 40 MG TABLET.DR. PO SCH (08:29)
[2019-06-01] MEDS: DICLOFENAC SODIUM 1% TOPICAL GEL 100GM TUBE. TP SCH ×2 (08:30→12:26)
--- NOTE | 2019-06-01 09:25 | PDOC ---
PULMONARY PROGRESS NOTES Subjective PT FEELS LESS SOA ARTHRITIS TYPE OF PAIN Vitals Vital Signs Date Time Temp Pulse Resp B/P (MAP) Pulse Ox O2 Delivery O2 Flow Rate FiO2 06/01/19 08:28 58 147/92 06/01/19 08:26 96 Room Air 06/01/19 07:20 98.5 18 98.5 ROS: No Nausea, No Chest Pain, No Abdominal Pain, No Increase Cough General: Alert, Oriented X4 Lungs: Crackles Cardiovascular: S1, S2 Abdomen: Soft, Non-tender Neuro Exam: Alert Extremities: No Edema Skin: Warm Labs Laboratory Tests Test 05/30/19 10:50 05/30/19 13:10 05/30/19 16:35 05/30/19 17:11 White Blood Count 11.8 x10^3/uL (4.0-11.0) Red Blood Count 5.53 x10^6/uL (4.30-5.70) Hemoglobin 16.3 g/dL (13.0-17.5) Hematocrit 48.5 % (39.0-53.0) Mean Corpuscular Volume 88 fL (79-100) Mean Corpuscular Hemoglobin 29 pg (25-35) Mean Corpuscular Hemoglobin Concent 34 g/dL (31-37) Red Cell Distribution Width 17.0 % (11.5-14.5) Platelet Count 305 x10^3/uL (140-400) Neutrophils (%) (Auto) 66 % (31-73) Lymphocytes (%) (Auto) 25 % (24-48) Monocytes (%) (Auto) 6 % (0-9) Eosinophils (%) (Auto) 2 % (0-3) Basophils (%) (Auto) 1 % (0-3) Neutrophils # (Auto) 7.7 x10^3/uL (1.8-7.7) Lymphocytes # (Auto) 2.9 x10^3/uL (1.0-4.8) Monocytes # (Auto) 0.7 x10^3/uL (0.0-1.1) Eosinophils # (Auto) 0.2 x10^3/uL (0.0-0.7) Basophils # (Auto) 0.2 x10^3/uL (0.0-0.2) Sodium Level 137 mmol/L (136-145) Potassium Level 3.7 mmol/L (3.5-5.1) Chloride Level 98 mmol/L (98-107) Carbon Dioxide Level 28 mmol/L (21-32) Anion Gap 11 (6-14) Blood Urea Nitrogen 11 mg/dL (8-26) Creatinine 0.9 mg/dL (0.7-1.3) Estimated GFR (Cockcroft-Gault) 86.4 BUN/Creatinine Ratio 12 (6-20) Glucose Level 198 mg/dL (70-99) Calcium Level 9.6 mg/dL (8.5-10.1) Total Bilirubin 0.5 mg/dL (0.2-1.0) Aspartate Amino Transf (AST/SGOT) 10 U/L (15-37) Alanine Aminotransferase (ALT/SGPT) 9 U/L (16-63) Alkaline Phosphatase 66 U/L (46-116) Creatine Kinase 30 U/L (39-308) Creatine Kinase MB (Mass) < 0.5 ng/mL (0.0-3.6) Creatine Kinase MB Relative Index % (0-4) Troponin I Quantitative < 0.017 ng/mL (0.000-0.055) Total Protein 8.6 g/dL (6.4-8.2) Albumin 3.8 g/dL (3.4-5.0) Albumin/Globulin Ratio 0.8 (1.0-1.7) Thyroid Stimulating Hormone (TSH) 0.501 uIU/mL (0.358-3.74) Lactic Acid Level 2.0 mmol/L (0.4-2.0) 1.6 mmol/L (0.4-2.0) Glucose (Fingerstick) 140 mg/dL (70-99) Test 05/30/19 19:52 05/31/19 07:30 05/31/19 09:10 05/31/19 12:48 Glucose (Fingerstick) 154 mg/dL (70-99) 105 mg/dL (70-99) 161 mg/dL (70-99) White Blood Count 12.2 x10^3/uL (4.0-11.0) Red Blood Count 5.22 x10^6/uL (4.30-5.70) Hemoglobin 15.1 g/dL (13.0-17.5) Hematocrit 45.2 % (39.0-53.0) Mean Corpuscular Volume 87 fL (79-100) Mean Corpuscular Hemoglobin 29 pg (25-35) Mean Corpuscular Hemoglobin Concent 33 g/dL (31-37) Red Cell Distribution Width 17.2 % (11.5-14.5) Platelet Count 279 x10^3/uL (140-400) Neutrophils (%) (Auto) 68 % (31-73) Lymphocytes (%) (Auto) 25 % (24-48) Monocytes (%) (Auto) 5 % (0-9) Eosinophils (%) (Auto) 1 % (0-3) Basophils (%) (Auto) 1 % (0-3) Neutrophils # (Auto) 8.3 x10^3/uL (1.8-7.7) Lymphocytes # (Auto) 3.0 x10^3/uL (1.0-4.8) Monocytes # (Auto) 0.7 x10^3/uL (0.0-1.1) Eosinophils # (Auto) 0.1 x10^3/uL (0.0-0.7) Basophils # (Auto) 0.1 x10^3/uL (0.0-0.2) Sodium Level 140 mmol/L (136-145) Potassium Level 3.6 mmol/L (3.5-5.1) Chloride Level 103 mmol/L (98-107) Carbon Dioxide Level 25 mmol/L (21-32) Anion Gap 12 (6-14) Blood Urea Nitrogen 10 mg/dL (8-26) Creatinine 0.7 mg/dL (0.7-1.3) Estimated GFR (Cockcroft-Gault) 115.4 BUN/Creatinine Ratio 14 (6-20) Glucose Level 185 mg/dL (70-99) Calcium Level 9.3 mg/dL (8.5-10.1) Total Bilirubin 0.4 mg/dL (0.2-1.0) Aspartate Amino Transf (AST/SGOT) 5 U/L (15-37) Alanine Aminotransferase (ALT/SGPT) 10 U/L (16-63) Alkaline Phosphatase 55 U/L (46-116) Total Protein 7.7 g/dL (6.4-8.2) Albumin 3.5 g/dL (3.4-5.0) Albumin/Globulin Ratio 0.8 (1.0-1.7) Test 05/31/19 16:55 06/01/19 05:12 Glucose (Fingerstick) 199 mg/dL (70-99) 130 mg/dL (70-99) Laboratory Tests Test 05/31/19 12:48 05/31/19 16:55 06/01/19 05:12 Glucose (Fingerstick) 161 mg/dL (70-99) 199 mg/dL (70-99) 130 mg/dL (70-99) Medications Active Scripts Medications Dose Route/Sig Max Daily Dose Days Date Category Dose Instructions Lisinopril 20 Mg Tablet 20 Mg PO DAILY 04/19/17 Rx Aspirin Ec (Aspirin) 325 Mg Tablet.dr 325 Mg PO DAILYWBKFT 04/19/17 Rx Flomax (Tamsulosin Hcl) 0.4 Mg Cap.er.24h 2 Cap PO DAILY 04/15/17 Reported Avodart (Dutasteride) 0.5 Mg Capsule 0.5 Mg PO DAILY 02/20/17 Reported Methotrexate (Methotrexate Sodium) 2.5 Mg Tablet 4 Tab PO WEEKLY 02/20/17 Reported ON THURSDAYS Pravastatin Sodium 40 Mg Tablet 40 Mg PO DAILY 02/20/17 Reported Omeprazole 40 Mg Capsule.dr 40 Mg PO DAILY 02/20/17 Reported Metformin Hcl 1,000 Mg Tablet 1 Tab PO BID 07/02/16 Reported Impression . IMPRESSION: 1. Abnormal x-ray revealing bilateral opacities in the bases, suspect chronic changes, possible early interstitial lung disease. 2. Tobacco dependence. 3. Acute exacerbation of chronic obstructive pulmonary disease. 4. Atrial fibrillation. 5. Chest pain. 6. Other comorbidities as indicated above including type 2 diabetes, chronic pain, psoriatic arthritis. CT REPORT Impression: 1. No evidence of pulmonary fibrosis. Scattered linear atelectasis or scarring. 2. Minimal paraseptal emphysema. 3. Right upper lobe pulmonary nodule. Recommend one-year follow-up. Plan . FOLLOW UP CT IN 4 MONTHS CONTINUE THE SAME HOME PER PCP ABNER SHEPARD MD Jun 01, 2019 09:25
[2019-06-01 11:03] VITALS: BP 127/79
--- NOTE | 2019-06-01 12:52 | DS ---
DATE OF DISCHARGE: ADMITTING DIAGNOSIS: Chest pain. HISTORY OF PRESENT ILLNESS AND HOSPITAL COURSE: This is a 58-year-old male who came to the hospital with increasing chest pain with history of atrial fibrillation. He felt palpitations, came to Emergency Room for evaluation. He was found to have changes in his chest x-ray for possible pneumonia and wheezing. Pulmonary and Cardiology was consulted. Cardiology deemed chest pain to be noncardiac. Pulmonary Medicine felt that the patient did not have pneumonia, but had some atelectasis and had a COPD exacerbation. The patient improved after 24-48 hours of hospitalization and was back to baseline. He was discharged to home with diagnosis of chest wall pain from: 1. Psoriatic arthritis. 2. Exacerbation of chronic obstructive pulmonary disease. 3. Pulmonary atelectasis. DISCHARGE MEDICATIONS: He was discharged on the following medications: ProAir inhaler 2 puffs q.6 p.r.n., prednisone taper 50 mg tapering by 10 mg every other day until off, aspirin 325 mg daily, dexamethasone ointment for psoriasis, Voltaren gel for arthritis pains q.i.d., Avodart 0.5 daily for BPH symptoms, fentanyl 100 mcg patches changed every third day, flecainide at 100 mg half a tablet b.i.d. for AFib, Lasix 20 mg every third day for diastolic congestive heart failure, lisinopril 10 mg every day for hypertension, metformin 1000 mg b.i.d. for type 2 diabetes, methotrexate 2.5 mg 4 tablets weekly for psoriatic arthritis, metoprolol 25 mg daily for hypertension and AFib, oxycodone 60 mg b.i.d. p.r.n. for breakthrough pain, pravastatin 40 mg daily, prednisone 10 mg daily p.r.n., tamsulosin 0.4 two tablets each day at bedtime for BPH. DISCHARGE INSTRUCTIONS: He will follow up in clinic for wound in one week for continued care. SKIP WHITNEY MD DR: CHAZ/maulik JOB#: [id number] / [id number]
--- NOTE | 2019-06-01 13:00 | NUR ---
Discharge Note: SAMI RODRIGUEZ II [address] Discharge instructions and discharge home medications reviewed with Patient and a copy given. All questions have been answered and understanding verbalized. The following instructions and handouts were given: F/U with Dr. Sun within [address], F/U with Dr. Stevenson as scheduled, and F/U with Dr. Beverly as needed. Discontinued lines and drains: Peripheral IV intact. Patient discharged to Home or Self Care with Self via Ambulated.
[2019-06-02] MEDS ORDERED: FUROSEMIDE 20 MG TABLET PO SCH (09:00)
== END 2019-06-01 13:00 | disposition home or self-care (01) | DRG 191 ==
LOC: ER 10:24 → 6 SOUTH 12:23
PROVIDERS: ADMIT Family Medicine; ATTEND Internal Medicine
DX: J44.1 Chronic obstructive pulmonary disease with (acute) exacerbation (principal); I48.20 Chronic atrial fibrillation, unspecified; J98.11 Atelectasis; I50.30 Unspecified diastolic (congestive) heart failure; E11.9 Type 2 diabetes mellitus without complications; E78.00 Pure hypercholesterolemia, unspecified; E78.5 Hyperlipidemia, unspecified; F17.210 Nicotine dependence, cigarettes, uncomplicated; G89.29 Other chronic pain; L40.9 Psoriasis, unspecified; I25.10 Atherosclerotic heart disease of native coronary artery without angina pectoris; L40.50 Arthropathic psoriasis, unspecified; M19.90 Unspecified osteoarthritis, unspecified site; N40.0 Benign prostatic hyperplasia without lower urinary tract symptoms; Z80.0 Family history of malignant neoplasm of digestive organs; Z80.1 Family history of malignant neoplasm of trachea, bronchus and lung; Z80.7 Family history of other malignant neoplasms of lymphoid, hematopoietic and related tissues; Z82.49 Family history of ischemic heart disease and other diseases of the circulatory system; Z88.1 Allergy status to other antibiotic agents; Z88.0 Allergy status to penicillin; I11.0 Hypertensive heart disease with heart failure
CPT/HCPCS: 36415; 71046; 71250; 80053; 82553; 82962; 83605; 84443; 84484; 85025; 87040; 93005; 93306; 94640; 94760; 96365; 96375; J0456; J0696; J1650; J2270; J7512; J7620; Q0163; 99285-25; G0378